=== PATIENT | male | born 1940 | race Caucasian/White ===

== ENCOUNTER 2017-07-09 11:11 | Emergency (ER) | payer MEDICARE, BC ==
[2017-07-09] MEDS ORDERED: Albuterol/Ipratropium 3.0-0.5 MG/3 ML Neb Soln NEB ONE (11:44)
[2017-07-09] MEDS ORDERED: Sodium Chloride 0.9% 2.5 ML Syringe FLUSH PRN (11:44)
[2017-07-09] MEDS ORDERED: Sodium Chloride 0.9% 10 ML Syringe FLUSH PRN (11:44)
--- NOTE | 2017-07-09 11:44 | EDM.PDOC ---
ED HPI GENERAL MEDICAL PROBLEM - General Chief Complaint: Respiratory Problem Stated Complaint: COUGHING Time Seen by Provider: 07/09/17 11:41 Source of Information: Reports: Patient History Limitations: Reports: No Limitations - History of Present Illness INITIAL COMMENTS - FREE TEXT/NARRATIVE: HISTORY AND PHYSICAL: []77-year-old gentleman presenting with dyspnea and cough History of Present Illness: []This patient has history of emphysema Was coughing all night yesterday and now has right-sided ear pain His primary care provider is Dr. Gio Toure On presentation O2 saturation 88-89% on room air 2 L nasal cannula and O2 saturation now is at 94%. Notable his oxygen saturation drops he has any activity He is productive cough that had white & green sputum Review of Systems: As per history of present illness and below otherwise all systems reviewed and negative. Past medical history: As per history of present illness and as reviewed below otherwise noncontributory. Surgical history: As per history of present illness and as reviewed below otherwise noncontributory. Social history: No reported history of drug or alcohol abuse. Family history: As per history of present illness and as reviewed below otherwise noncontributory. Physical exam: Alert gentleman answering questions appropriately in 3 or 4 words. Family accompanies him. HEENT: Atraumatic, normocehpalic, pupils reactive, negative for conjunctival pallor or scleral icterus, mucous membranes moist, throat clear, neck supple, nontender, trachea midline. Lungs: Rhonchi auscultation, breath sounds equal bilaterally, chest non tender. Heart: S1S2, regular, negative for clicks, rubs, or JVD. Abdomen: Soft, nondistended, nontender. Negative for masses or hepatossplenmegaly. Negative for costovertebral tenderness. Pelvis: Stable nontender. Genitourinary: Deferred. Rectal: Deferred Extremities: Atraumatic, negative for cords or calf pain. Neurovascular unremarkable. Neuro: Awake, alert, oriented. Cranial nerves II through XII unremarkable. Cerebellum unremarkable. Motor and sensory unremarkable throughout. Exam nonfocal. X-ray does not show any signs of a pneumonia Diagnostics: []CBC CMP amylase lipase troponin EKG chest x-ray 2 Therapeutics: []O2 2 L Impression: []COPD exacerbation Right otitis media Plan: []Discharged to home Nebulizer machine to utilize up to 4 times daily as needed for shortness of breath Antibiotic therapy of Zithromax daily Follow-up with your primary care provider next week Definitive disposition and diagnosis as appropriate pending reevaluation and review of above. Onset: Gradual Duration: Day(s): (4) Location: Reports: Chest Quality: Reports: Ache Severity: Moderate Improves with: Reports: None Worsens with: Reports: None - Related Data Allergies Allergy/AdvReac Type Severity Reaction Status Date / Time No Known Allergies Allergy Verified 07/09/17 11:25 Home Meds: Home Meds Albuterol Sulfate [Albuterol Sulfate HFA] 1 puff INH ASDIRECTED PRN 02/24/14 [ History] Celecoxib [CeleBREX] 200 mg PO DAILY 02/24/14 [History] Fluticasone/Salmeterol [Advair 250-50] 1 puff INH BID 02/24/14 [History] Omeprazole [Prilosec] 20 mg PO DAILY 02/24/14 [History] Psyllium Seed/Aspartame [Metamucil Powder] 1 tbsp PO BID 02/25/14 [History] Levofloxacin [Levaquin] 750 mg PO DAILY #6 tab 02/26/14 [Rx] predniSONE 20 mg PO BRK #12 tab 02/26/14 [Rx] Albuterol/Ipratropium [DuoNeb 3.0-0.5 MG/3 ML] 3 ml .XX Q8HR PRN #1 box [Rx] Azithromycin [Zithromax] 250 mg PO DAILY #6 tab 07/09/17 [Rx] Past Medical History Respiratory History: Reports: COPD Other Respiratory History: emphysema - Past Surgical History Male Surgical History: Reports: Prostatectomy Social & Family History - Family History Family Medical History: Noncontributory - Tobacco Use Smoking Status *Q: Current Some Day Smoker Years of Tobacco use: 65 Packs/Tins Daily: 0.1 - Caffeine Use Caffeine Use: Reports: Coffee - Recreational Drug Use Recreational Drug Use: No ED ROS GENERAL - Review of Systems Review Of Systems: ROS reveals no pertinent complaints other than HPI. ED EXAM, GENERAL - Physical Exam Exam: See Below (See dictation) Course - Vital Signs Last Recorded V/S: Last Vital Signs Temp 36.4 C 07/09/17 13:21 Pulse 88 05/19/18 13:21 Resp 16 07/09/17 13:21 BP 132/62 07/09/17 13:21 Pulse Ox 94 L 07/09/17 13:21 - Orders/Labs/Meds Orders: Active Orders 24 hr Category Date Time Status EKG Documentation Completion [RC] STAT Care 07/09/17 11:44 Active RT Aerosol Therapy [RC] ASDIRECTED Care 07/09/17 11:44 Active Chest 2V [CR] Stat Exams 07/09/17 11:45 Taken Sodium Chloride 0.9% [Saline Flush] Med 07/09/17 11:44 Active 10 ml FLUSH ASDIRECTED PRN Sodium Chloride 0.9% [Saline Flush] Med 07/09/17 11:44 Active 2.5 ml FLUSH ASDIRECTED PRN Saline Lock Insert [OM.PC] Stat Oth 07/09/17 11:44 Ordered Medication Orders Sodium Chloride (Saline Flush) 10 ml FLUSH ASDIRECTED PRN PRN Reason: Keep Vein Open Sodium Chloride (Saline Flush) 2.5 ml FLUSH ASDIRECTED PRN PRN Reason: Keep Vein Open Labs: Laboratory Tests 07/09/17 07/09/17 Range/Units 11:46 11:46 WBC 13.08 H (4.0-11.0) K/uL RBC 4.95 (4.50-5.90) M/uL Hgb 15.3 (13.0-17.0) g/dL Hct 44.9 (38.0-50.0) % MCV 90.7 (80.0-98.0) fL MCH 30.9 (27.0-32.0) pg MCHC 34.1 (31.0-37.0) g/dL RDW Std Deviation 43.9 (28.0-62.0) fl RDW Coeff of Yonis 13 (11.0-15.0) % Plt Count 148 L (150-400) K/uL MPV 11.80 (7.40-12.00) fL Neut % (Auto) 77.8 (48.0-80.0) % Lymph % (Auto) 6.3 L (16.0-40.0) % [place] % (Auto) 14.9 (0.0-15.0) % Eos % (Auto) 0.8 (0.0-7.0) % Baso % (Auto) 0.2 (0.0-1.5) % Neut # (Auto) 10.2 H (1.4-5.7) K/uL Lymph # (Auto) 0.8 (0.6-2.4) K/uL [place] # (Auto) 2.0 H (0.0-0.8) K/uL Eos # (Auto) 0.1 (0.0-0.7) K/uL Baso # (Auto) 0.0 (0.0-0.1) K/uL Nucleated RBC % 0.0 /100WBC Nucleated RBCs # 0 K/uL Sodium 137 (136-148) mmol/L Potassium 4.1 (3.5-5.1) mmol/L Chloride 103 (98-107) mmol/L Carbon Dioxide 24.5 (21.0-32.0) mmol/L BUN 18 (7.0-18.0) mg/dL Creatinine 1.3 (0.8-1.3) mg/dL Est Cr Clr Drug Dosing 48.35 mL/min Estimated GFR (MDRD) 53.4 ml/min Glucose 108 H (74-106) mg/dL Calcium 9.0 (8.5-10.1) mg/dL Total Bilirubin 0.8 (0.2-1.0) mg/dL AST 17 (15-37) IU/L ALT 19 (14-63) IU/L Alkaline Phosphatase 69 (46-116) U/L Troponin I < 0.050 (0.000-0.056) ng/mL Total Protein 6.4 (6.4-8.2) g/dL Albumin 3.4 (3.4-5.0) g/dL Globulin 3.0 (2.0-3.5) g/dL Albumin/Globulin Ratio 1.1 L (1.3-2.8) Meds: Medications Generic Name Dose Route Start Last Admin Trade Name Freq PRN Reason Stop Dose Admin Sodium Chloride 10 ml 07/09/17 11:44 Saline Flush FLUSH ASDIRECTED PRN Keep Vein Open Sodium Chloride 2.5 ml 07/09/17 11:44 Saline Flush FLUSH ASDIRECTED PRN Keep Vein Open Discontinued Medications Generic Name Dose Route Start Last Admin Trade Name Freq PRN Reason Stop Dose Admin Albuterol/Ipratropium 3 ml 07/09/17 11:44 07/09/17 11:58 Duoneb 3.0-0.5 Mg/3 Ml NEB 07/09/17 11:45 3 ml ONETIME ONE Administration Methylprednisolone Sodium Succinate 125 mg 07/09/17 12:16 07/09/17 12:38 Solu-Medrol IVPUSH 07/09/17 12:17 125 mg ONETIME ONE Administration Departure - Departure Time of Disposition: 14:37 Disposition: Home, Self-Care 01 Condition: Good Clinical Impression: COPD, Moderate chronic obstructive pulmonary disease - Discharge Information Prescriptions: Albuterol/Ipratropium [DuoNeb 3.0-0.5 MG/3 ML] 3 ml .XX Q8HR PRN #1 box PRN Reason: Shortness Of Breath Azithromycin [Zithromax] 250 mg PO DAILY #6 tab Instructions: Chronic Obstructive Pulmonary Disease Exacerbation, [id number] , How to Use a Nebulizer, Adult Referrals: PCP,None [Primary Care Provider] - Forms: ED Department Discharge Additional Instructions: The following information is given to patients seen in the emergency department who are being discharged to home. This information is to outline your options for follow-up care. We provide all patients seen in our emergency department with a follow-up referral. The need for follow-up, as well as the timing and circumstances, are variable depending upon the specifics of your emergency department visit. If you don't have a primary care physician on staff, we will provide you with a referral. We always advise you to contact your personal physician following an emergency department visit to inform them of the circumstance of the visit and for follow-up with them and/or the need for any referrals to a consulting specialist. The emergency department will also refer you to a specialist when appropriate. This referral assures that you have the opportunity for followup care with a specialist. All of these measure are taken in an effort to provide you with optimal care, which includes your followup. Under all circumstances we always encourage you to contact your private physician who remains a resource for coordinating your care. When calling for followup care, please make the office aware that this follow-up is from your recent emergency room visit. If for any reason you are refused follow-up, please contact the [facility] emergency department at and asked to speak to the emergency department charge nurse. You had a flareup of your emphysema/COPD Antibiotics have been ordered through your pharmacy A nebulizer machine has been ordered for you Medication to put in the nebulizer machine has been ordered Worsening of your condition return immediately for reevaluation Follow up with your primary care provider next week for reevaluation Return to the emergency room as discussed and - My Orders Last 24 Hours: My Active Orders 07/09/17 11:44 EKG Documentation Completion [RC] STAT RT Aerosol Therapy [RC] ASDIRECTED Sodium Chloride 0.9% [Saline Flush] 10 ml FLUSH ASDIRECTED PRN Sodium Chloride 0.9% [Saline Flush] 2.5 ml FLUSH ASDIRECTED PRN Saline Lock Insert [OM.PC] Stat 07/09/17 11:45 Chest 2V [CR] Stat - Assessment/Plan Last 24 Hours: My Active Orders 07/09/17 11:44 EKG Documentation Completion [RC] STAT RT Aerosol Therapy [RC] ASDIRECTED Sodium Chloride 0.9% [Saline Flush] 10 ml FLUSH ASDIRECTED PRN Sodium Chloride 0.9% [Saline Flush] 2.5 ml FLUSH ASDIRECTED PRN Saline Lock Insert [OM.PC] Stat 07/09/17 11:45 Chest 2V [CR] Stat
[2017-07-09] MEDS ORDERED: methylPREDNISolone Sodium Succinate 125 MG/2 ML SDV IVPUSH ONE (12:16)
[2017-07-09 12:22] LABS: CHLORIDE,CL 103 mmol/L (98-107); SODIUM,NA 137 mmol/L (136-148)
[2017-07-09 13:25] VITALS: BP 132/62
--- NOTE | 2017-07-11 10:48 | CR ---
EXAM DATE: 07/09/17 PATIENT'S AGE: 77 Patient: [facility] Facility: [place], [place] Site . Site : [id number] Study: XRay Chest [id number] 1:36:56 PM Ordering Physician: Doctor Noonan Final Report: INDICATION: Pain or shortness of breath. TECHNIQUE: Two views. IMPRESSION: Hyperinflated lungs. Scarring in both bases. Flattened hemidiaphragms. Mildly prominent central pulmonary artery caliber. Peripheral pulmonary vascularity normal. No definite pneumonia. No nodule. IMPRESSION: Emphysema. Possible mild pulmonary hypertension changes. Dictated by Adam Wright MD @ Jul 09 2017 1:49PM (Electronic Signature) Report Signed by Proxy. BONNIE
== END 2017-07-09 15:06 | disposition home or self-care (01) ==
LOC: MW.ED 11:11
DX: J44.1 Chronic obstructive pulmonary disease with (acute) exacerbation (principal); H66.91 Otitis media, unspecified, right ear; Z79.899 Other long term (current) drug therapy; F17.210 Nicotine dependence, cigarettes, uncomplicated
CPT/HCPCS: 36415; 71046; 80053; 84484; 85025; 93005; 94640; 96374; 99285; J2930; 99283

== ENCOUNTER 2020-06-05 17:03 | Inpatient (IN) | payer BC, MEDICARE ==
[2020-06-05] MEDS ORDERED: methylPREDNISolone Sodium Succinate 125 MG/2 ML SDV IVPUSH ONE (17:06)
[2020-06-05] MEDS ORDERED: Sodium Chloride 0.9% 2.5 ML Syringe FLUSH PRN (17:06)
[2020-06-05] MEDS ORDERED: Sodium Chloride 0.9% 10 ML Syringe FLUSH PRN (17:06)
[2020-06-05] MEDS ORDERED: Albuterol/Ipratropium 3.0-0.5 MG/3 ML Neb Soln NEB ONE ×3 (17:06→17:07)
--- NOTE | 2020-06-05 17:32 | PCM.EKG ---
#1 Interpretation EKG Date: 06/05/20 Time: 17:18 Rhythm: NSR Rate (Beats/Min): 83 ST-T: Normal
[2020-06-05] MEDS ORDERED: Sodium Chloride 0.9% 1,000 ML IV ONE (17:43)
--- NOTE | 2020-06-05 17:59 | EDM.PDOC ---
ED HPI GENERAL MEDICAL PROBLEM - General Chief Complaint: Respiratory Problem Stated Complaint: EMS Time Seen by Provider: 06/05/20 17:05 Source of Information: Reports: Patient, EMS, Family History Limitations: Reports: Altered Mental Status - History of Present Illness INITIAL COMMENTS - FREE TEXT/NARRATIVE: HISTORY AND PHYSICAL: History of present illness: Patient is an 80-year-old male who presents emergency room today via EMS with concern of hypoxia and altered mental status. Patient lives at home according to EMS and states that patient's daughter comes to check on him daily. Patient's daughter has arrived to the emergency room. According to patient's daughter, she states that she checks on him daily and bring some food and grocery shops for him. She states that he lives at home alone she states he has a history of severe COPD and is felt to be on 4 L nasal cannula at baseline at home at all times and states that he is not good about wearing it. Daughter states that she went to his house last night and noticed that he was little more confused. Daughter states when she went to check on him again today, he had completely urinated all over himself, was trying to crawl out the window and did not know where he was at, and he had not been using his oxygen all day. She states that she called EMS as soon as she arrived to his house. She states that she noticed he had not eaten any of the food that she made for him for the day. Upon arrival to the ED, patient is alert to person, place, but is confused about time and he has no complaints. Daughter states that was confused a few months ago and was instructed by Dr. Toure to start considering [place] but states that he improved so has been living at home. States that 1 week ago he did fall and injured his left elbow and did hit his head at that time. Patient/daughter denies fever, chills, chest pain. Denies headache, neck stiff ness, change in vision, syncope, or near syncope. Denies nausea, vomiting, abdominal pain, diarrhea, constipation, or dysuria. Has not noted any blood in urine or stool. Review of systems: As per history of present illness and below otherwise all systems reviewed and negative. Past medical history: As per history of present illness and as reviewed below otherwise noncontributory. Surgical history: As per history of present illness and as reviewed below otherwise noncontributory. Social history: See social history for further information Family history: As per history of present illness and as reviewed below otherwise noncontributory. Physical exam: General: Patient is alert, oriented, and in no acute distress. Patient laying on exam table; cachectic and chronically ill appearing. Tachypneic 25, O2 on non rebreather 100% otherwise vitally stable and reviewed by me. HEENT: Atraumatic, normocephalic, pupils equal and reactive bilaterally, negative for conjunctival pallor or scleral icterus, mucous membranes dry, TMs normal bilaterally, throat clear, neck supple, nontender, trachea midline. No drooling or trismus noted. No meningeal signs. No hot potato voice noted. Lungs: Barrel chest noted. Diminished lung sounds bilaterally with decreased air flow breath sounds equal bilaterally but diminished, chest nontender. Heart: S1S2, regular rate and rhythm without overt murmur Abdomen: Large umbilical hernia noted that reducible and non tender. Otherwise, soft, nondistended, nontender. Negative for masses or hepatosplenomegaly. Negative for costovertebral tenderness. Pelvis: Stable nontender. Genitourinary: Biotech Production Specialist at bedside, J Carlos Berkowitz RN. Patient incontinent of urine. Rectal: Deferred. Skin: Various multiple areas of older staged ecchymosis noted to skin. Intact, warm, dry. No lesions or rashes noted. Extremities: Ecchymosis noted to the left elbow with moderate edema, radial pulse intact of the LUE w cap refill < 2 seconds. Otherwise, atraumatic, negative for cords or calf pain. Neurovascular unremarkable. Neuro: Awake, alert, oriented. Cranial nerves II through XII unremarkable. Cerebellum unremarkable. Motor and sensory unremarkable throughout. Exam nonfocal. Notes: Dr. Lagos verbally involved in patient care and disposition. Upon arrival to the ED, patient is alert to person and place but not time and appears confused. He is unable to answer questions appropriately but is protecting his airway. GCS 13. O2 is 99% on 5L Oxymask and tachypneic 25. Patient's Daughter, who is at bedside, has medical POA paperwork that we have received a copy of legal paperwork. After extensive and thorough conversation o f possible respiratory deterioration with daughter, as patient is unable to make medical decisions at this time due to altered mental status, daughter Barbara decides for patient to be DNR/DNI. Barbara states that she would like patient to receive a full diagnostics to his underlying cause for today. Will obtain cardiac evaluation, altered mental status evaluation, and Ang CT r/o PE for worsening hypoxia/altered mental status, Head CT and an XR of patients elbow/pelvis for suspected fall/injury. Despite oxymask and improvement of hypoxia, patient RR increasing to 30-35. After thorough discussion with daughter, Barbara, will transition to BIPAP. See Dr. Arroyo's dictation for specific EKG interpretation but no STEMI or acute changes. Normal sinus rhythm. CBC mild derangements which unremarkable. CMP indicates CO2 elevated 36.3 and mild elevation of potassium at 5.2. VBG shows pH 7.33. Troponin is elevated 0.093. COVID/Flu negative. ABG on Bipap shows worsening ph of acidosis 7.267 with elevation CO2 at 68. Repeat troponin has increased to 0.194. Patient is unable to tolerate PO intake for ASA. Ang CT shows no pulmonary embolism or pneumonia. Emphysema. Two left lower lobe pulmonary nodules. Head CT shows no acute intracranial findings. Elbow XR shows acute nondisplaced fracture of the radial head. Avulsion fracture of the olecranon process with prominent overlying soft tissue swelling. Patient placed in a posterior long sugar tong splint of the LUE placed by nursing staff. Discussed all findings today with patient and daughter at bedside. Discussed increasing troponin value and concern for acute coronary syndrome with recommendation for transfer to [facility] for cardiology consultation. However, daughter would not like to put patient through this and would like to admit to our hospital, understanding that we do not have cardiology availability. I called and spoke to the hospitalist mining consultant, Dr. Laguerre, and thoroughly discussed patients case. Will admit to inpatient on telemetry. Diagnostics: EKG, CBC, CMP, UA, Lactate, Blood cultures x 2, VBG, Trop, Head CT, CXR, Left elbow XR, Pelvic XR Therapeutics: NS, Duoneb x 3, solumedrol, Oxymask, Bipap, Lovenox, Azithromycin, Rocephin, Posterior long/sugar tong splint to LUE Impression: Acute respiratory failure with hypercapnia and hypoxia Elevated troponin COPD exacerbation, severe Altered mental status Radial head fracture, nondisplaced, closed Olecranon avulsion fracture, closed, left Plan: Admit to inpatient to Dr. Laguerre on telemetry Critical care time is exclusive of billable procedures and the time to perform these procedures. Critical care time was used to prevent vital system organ failure and deterioration. Critical care time includes bedside management and high-complexity decision making requiring my highest level of mental preparedness and attention. This includes reviewing the patient's chart and prior medical records, ordering and reviewing interpreting laboratory studies and imaging results, interpretation of vital signs and EKG, pulse oximetry, and discussion with the admitting team along with EMS and nursing staff. Patient presented with multiple critical lab values that required immediate intervention, acute respiratory failure requiring Bipap and immediate transfer to the hospital for additional close monitoring and continuation of treatment CC Time: 60 minutes Definitive disposition and diagnosis as appropriate pending reevaluation and review of above. - Related Data Allergies Allergy/AdvReac Type Severity Reaction Status Date / Time No Known Allergies Allergy Verified 06/05/20 17:18 Home Meds: Home Meds . [Unable to Verify Home Med List] 06/05/20 [History] Past Medical History Respiratory History: Reports: COPD Other Respiratory History: emphysema - Infectious Disease History Infectious Disease History: Reports: None - Past Surgical History Male Surgical History: Reports: Prostatectomy Social & Family History - Family History Family Medical History: No Pertinent Family History - Tobacco Use Tobacco Use Status *Q: Current Status Unknown - Caffeine Use Caffeine Use: Reports: Coffee - Recreational Drug Use Recreational Drug Use: No ED ROS GENERAL - Review of Systems Review Of Systems: Comprehensive ROS is negative, except as noted in HPI. ED EXAM, GENERAL - Physical Exam Exam: See Below (see dictation) Course - Vital Signs Last Recorded V/S: Last Vital Signs Temp 98 F 06/07/20 08:31 Pulse 72 06/07/20 08:31 Resp 22 H 06/07/20 08:31 BP 148/68 H 06/07/20 08:31 Pulse Ox 82 L 06/07/20 08:31 - Orders/Labs/Meds Labs: Laboratory Tests 06/05/20 06/05/20 06/05/20 Range/Units 17:15 17:15 17:53 WBC 8.00 (4.0-11.0) K/uL RBC 4.18 L (4.50-5.90) M/uL Hgb 12.9 L (13.0-17.0) g/dL Hct 43.0 (38.0-50.0) % MCV 102.9 H (80.0-98.0) fL MCH 30.9 (27.0-32.0) pg MCHC 30.0 L (31.0-37.0) g/dL RDW Std Deviation 54.2 (28.0-62.0) fl RDW Coeff of Yonis 15 (11.0-15.0) % Plt Count 121 L (150-400) K/uL MPV 12.30 H (7.40-12.00) fL Neut % (Auto) 84.0 H (48.0-80.0) % Lymph % (Auto) 8.1 L (16.0-40.0) % [place] % (Auto) 7.3 (0.0-15.0) % Eos % (Auto) 0.3 (0.0-7.0) % Baso % (Auto) 0.3 (0.0-1.5) % Neut # (Auto) 6.7 H (1.4-5.7) K/uL Lymph # (Auto) 0.7 (0.6-2.4) K/uL [place] # (Auto) 0.6 (0.0-0.8) K/uL Eos # (Auto) 0.0 (0.0-0.7) K/uL Baso # (Auto) 0.0 (0.0-0.1) K/uL Nucleated RBC % 0.0 /100WBC Nucleated RBCs # 0 K/uL D-Dimer, Quantitative (0.0-0.50) mg/L FEU ABG pH (7.35-7.45) ABG pCO2 (35-45) mmHG ABG pO2 (75-100) mmHG ABG HCO3 (22-26) mEq/L ABG Total CO2 ABG Base Excess (-2.0-2.0) VBG pH 7.33 (7.31-7.41) VBG pCO2 64 H (35-45) mmHG VBG pO2 42 H (30-40) mmHG VBG HCO3 34 H (22-30) mEq/L VBG Total CO2 31 L (41-51) mmol/L VBG Base Excess 5.7 H (-3.0-3.0) Lactate 1.5 (0.20-2.00) mmol/L Sodium (136-148) mmol/L Potassium (3.5-5.1) mmol/L Chloride (98-107) mmol/L Carbon Dioxide (21.0-32.0) mmol/L BUN (7.0-18.0) mg/dL Creatinine (0.8-1.3) mg/dL Est Cr Clr Drug Dosing mL/min Estimated GFR (MDRD) ml/min Glucose (74-106) mg/dL Calcium (8.5-10.1) mg/dL Total Bilirubin (0.2-1.0) mg/dL AST (15-37) IU/L ALT (14-63) IU/L Alkaline Phosphatase (46-116) U/L Troponin I (0.000-0.056) ng/mL B-Natriuretic Peptide (<100) PG/ML Total Protein (6.4-8.2) g/dL Albumin (3.4-5.0) g/dL Globulin (2.6-4.0) g/dL Albumin/Globulin Ratio (0.9-1.6) Lipase (73-393) U/L Influenza Type A RNA (NEGATIVE) Influenza Type B RNA (NEGATIVE) SARS-CoV-2 RNA (JULIETA) (NEGATIVE) 06/05/20 06/05/20 06/05/20 Range/Units 17:53 17:53 17:53 WBC (4.0-11.0) K/uL RBC (4.50-5.90) M/uL Hgb (13.0-17.0) g/dL Hct (38.0-50.0) % MCV (80.0-98.0) fL MCH (27.0-32.0) pg MCHC (31.0-37.0) g/dL RDW Std Deviation (28.0-62.0) fl RDW Coeff of Yonis (11.0-15.0) % Plt Count (150-400) K/uL MPV (7.40-12.00) fL Neut % (Auto) (48.0-80.0) % Lymph % (Auto) (16.0-40.0) % [place] % (Auto) (0.0-15.0) % Eos % (Auto) (0.0-7.0) % Baso % (Auto) (0.0-1.5) % Neut # (Auto) (1.4-5.7) K/uL Lymph # (Auto) (0.6-2.4) K/uL [place] # (Auto) (0.0-0.8) K/uL Eos # (Auto) (0.0-0.7) K/uL Baso # (Auto) (0.0-0.1) K/uL Nucleated RBC % /100WBC Nucleated RBCs # K/uL D-Dimer, Quantitative 0.49 (0.0-0.50) mg/L FEU ABG pH (7.35-7.45) ABG pCO2 (35-45) mmHG ABG pO2 (75-100) mmHG ABG HCO3 (22-26) mEq/L ABG Total CO2 ABG Base Excess (-2.0-2.0) VBG pH (7.31-7.41) VBG pCO2 (35-45) mmHG VBG pO2 (30-40) mmHG VBG HCO3 (22-30) mEq/L VBG Total CO2 (41-51) mmol/L VBG Base Excess (-3.0-3.0) Lactate (0.20-2.00) mmol/L Sodium 141 (136-148) mmol/L Potassium 5.2 H (3.5-5.1) mmol/L Chloride 101 (98-107) mmol/L Carbon Dioxide 36.3 H (21.0-32.0) mmol/L BUN 41 H (7.0-18.0) mg/dL Creatinine 1.3 (0.8-1.3) mg/dL Est Cr Clr Drug Dosing 34.31 mL/min Estimated GFR (MDRD) 53.0 ml/min Glucose 102 (74-106) mg/dL Calcium 9.2 (8.5-10.1) mg/dL Total Bilirubin 0.7 (0.2-1.0) mg/dL AST 23 (15-37) IU/L ALT 22 (14-63) IU/L Alkaline Phosphatase 79 (46-116) U/L Troponin I 0.093 H* (0.000-0.056) ng/mL B-Natriuretic Peptide 51 (<100) PG/ML Total Protein 6.6 (6.4-8.2) g/dL Albumin 3.6 (3.4-5.0) g/dL Globulin 3.0 (2.6-4.0) g/dL Albumin/Globulin Ratio 1.2 (0.9-1.6) Lipase 117 (73-393) U/L Influenza Type A RNA (NEGATIVE) Influenza Type B RNA (NEGATIVE) SARS-CoV-2 RNA (JULIETA) (NEGATIVE) 06/05/20 06/05/20 06/05/20 Range/Units 18:04 19:50 19:59 WBC (4.0-11.0) K/uL RBC (4.50-5.90) M/uL Hgb (13.0-17.0) g/dL Hct (38.0-50.0) % MCV (80.0-98.0) fL MCH (27.0-32.0) pg MCHC (31.0-37.0) g/dL RDW Std Deviation (28.0-62.0) fl RDW Coeff of Yonis (11.0-15.0) % Plt Count (150-400) K/uL MPV (7.40-12.00) fL Neut % (Auto) (48.0-80.0) % Lymph % (Auto) (16.0-40.0) % [place] % (Auto) (0.0-15.0) % Eos % (Auto) (0.0-7.0) % Baso % (Auto) (0.0-1.5) % Neut # (Auto) (1.4-5.7) K/uL Lymph # (Auto) (0.6-2.4) K/uL [place] # (Auto) (0.0-0.8) K/uL Eos # (Auto) (0.0-0.7) K/uL Baso # (Auto) (0.0-0.1) K/uL Nucleated RBC % /100WBC Nucleated RBCs # K/uL D-Dimer, Quantitative (0.0-0.50) mg/L FEU ABG pH 7.267 L (7.35-7.45) ABG pCO2 68 H (35-45) mmHG ABG pO2 75 (75-100) mmHG ABG HCO3 31 H (22-26) mEq/L ABG Total CO2 28.9 ABG Base Excess 2.3 H (-2.0-2.0) VBG pH (7.31-7.41) VBG pCO2 (35-45) mmHG VBG pO2 (30-40) mmHG VBG HCO3 (22-30) mEq/L VBG Total CO2 (41-51) mmol/L VBG Base Excess (-3.0-3.0) Lactate (0.20-2.00) mmol/L Sodium (136-148) mmol/L Potassium (3.5-5.1) mmol/L Chloride (98-107) mmol/L Carbon Dioxide (21.0-32.0) mmol/L BUN (7.0-18.0) mg/dL Creatinine (0.8-1.3) mg/dL Est Cr Clr Drug Dosing mL/min Estimated GFR (MDRD) ml/min Glucose (74-106) mg/dL Calcium (8.5-10.1) mg/dL Total Bilirubin (0.2-1.0) mg/dL AST (15-37) IU/L ALT (14-63) IU/L Alkaline Phosphatase (46-116) U/L Troponin I 0.194 H* (0.000-0.056) ng/mL B-Natriuretic Peptide (<100) PG/ML Total Protein (6.4-8.2) g/dL Albumin (3.4-5.0) g/dL Globulin (2.6-4.0) g/dL Albumin/Globulin Ratio (0.9-1.6) Lipase (73-393) U/L Influenza Type A RNA NEGATIVE (NEGATIVE) Influenza Type B RNA NEGATIVE (NEGATIVE) SARS-CoV-2 RNA (JULIETA) NEGATIVE (NEGATIVE) Meds: Medications Discontinued Medications Generic Name Dose Route Start Last Admin Trade Name Freq PRN Reason Stop Dose Admin Albuterol/Ipratropium 3 ml 06/05/20 17:06 06/05/20 17:16 Albuterol/Ipratropium 3.0-0.5 Mg/3 Ml Neb Soln NEB 06/05/20 17:07 3 ml ONETIME ONE Administration Albuterol/Ipratropium 3 ml 06/05/20 17:07 06/05/20 17:16 Albuterol/Ipratropium 3.0-0.5 Mg/3 Ml Neb Soln NEB 06/05/20 17:08 3 ml ONETIME ONE Administration Albuterol/Ipratropium 3 ml 06/05/20 17:07 06/05/20 17:16 Albuterol/Ipratropium 3.0-0.5 Mg/3 Ml Neb Soln NEB 06/05/20 17:08 3 ml ONETIME ONE Administration Albuterol/Ipratropium 3 ml 06/06/20 02:00 06/06/20 06:02 Albuterol/Ipratropium 3.0-0.5 Mg/3 Ml Neb Soln NEB 3 ml Q4HRRT MONSERRAT Administration Albuterol/Ipratropium 3 ml 06/06/20 09:36 06/06/20 22:25 Albuterol/Ipratropium 3.0-0.5 Mg/3 Ml Neb Soln NEB 3 ml Q4HRRT PRN Administration Shortness of Breath Aspirin 324 mg 06/05/20 18:43 06/05/20 19:49 Aspirin 81 Mg Tab.Chew PO 06/05/20 18:44 Not Given ONETIME ONE Enoxaparin Sodium 54 mg 06/05/20 21:07 06/05/20 21:27 Enoxaparin 60 Mg/0.6 Ml Syringe SUBCUT 06/05/20 21:08 54 mg ONETIME ONE Administration Haloperidol Lactate 5 mg 06/05/20 23:24 06/05/20 23:47 Haloperidol Lactate 5 Mg/Ml Sdv IM 06/05/20 23:25 5 mg ONETIME ONE Administration Haloperidol Lactate 5 mg 06/06/20 01:15 Haloperidol Lactate 5 Mg/Ml Sdv IM Q8H PRN Agitation Heparin Sodium (Porcine) 5,000 units 06/05/20 22:30 06/06/20 06:34 Heparin Sodium 5,000 Units/Ml Vial SUBCUT 5,000 units Q8H MONSERRAT Administration Sodium Chloride 1,000 mls @ 500 mls/hr 06/05/20 17:43 06/05/20 17:58 Normal Saline IV 06/05/20 19:42 500 mls/hr STAT ONE Administration Ceftriaxone Sodium/Dextrose 1 50 mls @ 100 mls/hr 06/05/20 19:58 06/05/20 20:09 gm/ Premix IV 06/05/20 20:27 100 mls/hr ONETIME ONE Administration Azithromycin 500 mg/ Sodium 250 mls @ 250 mls/hr 06/05/20 20:00 06/05/20 20:55 Chloride IV 250 mls/hr ONETIME MONSERRAT Administration Lactated Ringer's 1,000 mls @ 999 mls/hr 06/05/20 22:30 06/05/20 23:51 Ringers, Lactated IV 06/05/20 23:30 999 mls/hr BOLUS ONE Administration Lactated Ringer's 1,000 mls @ 125 mls/hr 06/05/20 22:30 06/06/20 09:33 Ringers, Lactated IV 125 mls/hr ASDIRECTED MONSERRAT Administration Pantoprazole Sodium 40 mg/ 10 mls @ 300 mls/hr 06/05/20 22:45 06/06/20 09:33 Sodium Chloride IV 300 mls/hr DAILY MONSERRAT Administration Azithromycin 500 mg/ Sodium 250 mls @ 250 mls/hr 06/06/20 09:45 Chloride IV Q24H MONSERRAT Azithromycin 500 mg/ Sodium 250 mls @ 250 mls/hr 06/06/20 21:00 Chloride IV Q24H MONSERRAT Iopamidol 100 ml 06/05/20 18:53 06/05/20 19:34 Iopamidol 755 Mg/Ml 100 Ml Bottle IVPUSH 06/05/20 18:54 100 ml ONETIME STA Administration Lorazepam 0.5 mg 06/05/20 23:24 06/05/20 23:38 Lorazepam 2 Mg/Ml Sdv IVPUSH 06/05/20 23:25 0.5 mg ONETIME ONE Administration Lorazepam 1 mg 06/06/20 09:39 06/06/20 18:27 Lorazepam 2 Mg/Ml Sdv IVPUSH 1 mg Q4H PRN Administration agitation/anxiety Lorazepam 1 mg 06/06/20 21:17 06/06/20 22:18 Lorazepam Conc Solution 2 Mg/Ml 30 Ml Bottle PO 1 mg Q1H PRN Administration Agitation Lorazepam 2 mg 06/06/20 23:58 06/07/20 00:15 Lorazepam Conc Solution 2 Mg/Ml 30 Ml Bottle PO 06/06/20 23:59 2 mg ONETIME ONE Administration Lorazepam 1 mg 06/07/20 00:49 06/07/20 18:51 Lorazepam Conc Solution 2 Mg/Ml 30 Ml Bottle PO 1 mg Q30M PRN Administration Agitation Methylprednisolone Sodium Succinate 125 mg 06/05/20 17:06 06/05/20 17:58 Methylprednisolone Sodium Succinate 125 Mg/2 Ml Sdv IVPUSH 06/05/20 17:07 125 mg ONETIME ONE Administration Methylprednisolone Sodium Succinate 40 mg 06/06/20 02:00 06/06/20 09:33 Methylprednisolone Sodium Succinate 40 Mg/1 Ml Sdv IVPUSH 40 mg Q8H MONSERRAT Administration Morphine Sulfate 0.5 mg 06/05/20 22:30 Morphine 10 Mg/Ml Syringe IVPUSH 06/06/20 22:31 Q4H PRN Pain (severe 7-10) Morphine Sulfate 2 mg 06/06/20 09:38 06/06/20 18:27 Morphine 2 Mg/Ml Syringe IVPUSH 2 mg Q1H PRN Administration pain/agitation/SOB Morphine Sulfate 2 mg 06/06/20 21:25 06/07/20 00:23 Morphine 10 Mg/0.5 Ml Oral Syringe SL 2 mg Q1H PRN Administration Pain Morphine Sulfate 2 mg 06/07/20 00:50 06/07/20 18:51 Morphine 10 Mg/0.5 Ml Oral Syringe SL 2 mg Q30M PRN Administration Pain Ondansetron HCl 4 mg 06/05/20 22:30 Ondansetron 4 Mg/2 Ml Sdv IVPUSH Q4H PRN Nausea/Vomiting Sodium Chloride 2.5 ml 06/05/20 17:06 06/05/20 17:59 Sodium Chloride 0.9% 2.5 Ml Syringe FLUSH 2.5 ml ASDIRECTED PRN Administration Keep Vein Open Sodium Chloride 10 ml 06/05/20 17:06 06/05/20 17:59 Sodium Chloride 0.9% 10 Ml Syringe FLUSH 10 ml ASDIRECTED PRN Administration Keep Vein Open Departure - Departure Time of Disposition: 21:43 Disposition: Admitted As Inpatient 65 Clinical Impression: Elevated troponin, COPD exacerbation, Acute respiratory failure with hypoxia and hypercapnia Radial head fracture, closed Qualifiers: Encounter type: initial encounter Fracture alignment: nondisplaced Laterality: left Qualified Code(s): S52.125A - Nondisplaced fracture of head of left radius, initial encounter for closed fracture Olecranon fracture Qualifiers: Encounter type: initial encounter Fracture type: closed Laterality: left Qualified Code(s): S52.022A - Displaced fracture of olecranon process without intraarticular extension of left ulna, initial encounter for closed fracture Altered mental status Qualifiers: Altered mental status type: unspecified Qualified Code(s): R41.82 - Altered mental status, unspecified - Discharge Information Sepsis Event Note (ED) - Evaluation Sepsis Screening Result: No Definite Risk
[2020-06-05 18:27] LABS: CARBON DIOXIDE,CO2 36.3 mmol/L (21.0-32.0); POTASSIUM,K 5.2 mmol/L (3.5-5.1)
[2020-06-05] MEDS ORDERED: Aspirin 81 MG Tab.Chew PO ONE (18:43)
[2020-06-05 18:46] LABS: CORONAVIRUS COVID-19 NAA NEGATIVE (NEGATIVE); INFLUENZA A NAA NEGATIVE (NEGATIVE); INFLUENZA B NAA NEGATIVE (NEGATIVE)
[2020-06-05] MEDS ORDERED: Iopamidol 755 Mg/ML 100 ML Bottle IVPUSH STA (18:53)
--- NOTE | 2020-06-05 19:33 | CR ---
Indication: Fall. Technique: Left elbow 3 views. Comparison: None. Findings: Small avulsion fracture fragment of the olecranon process with prominent overlying soft tissue swelling. There is also an acute nondisplaced fracture of the radial head. Small elbow joint effusion. Impression: 1. Acute nondisplaced fracture of the radial head. 2. Avulsion fracture of the olecranon process with prominent overlying soft tissue swelling. Dictated by Ignacia De La Torre MD @ Jun 05 2020 7:29PM Signed by Dr. Ignacia De La Torre @ Jun 05 2020 7:32PM
--- NOTE | 2020-06-05 19:33 | CR ---
Indication: Fall Technique: Frontal view pelvis Comparison: CT abdomen pelvis May 28, 2013 Findings: Bones: Alignment is normal. No fractures or bone lesions. Joint spaces: Unremarkable. Soft tissues: There are surgical clips in the lower pelvis. Impression: No acute fracture or subluxation. Dictated by Yandy Mo MD @ Jun 05 2020 7:33PM Signed by Dr. Yandy Mo @ Jun 05 2020 7:33PM
--- NOTE | 2020-06-05 19:33 | CR ---
Indication: Shortness of breath Technique: Chest 1 view Comparison: June 02, 2018 Findings/Impression: Normal cardiomediastinal silhouette. Stable scarring at both lung bases. No new focal infiltrate. Normal pulmonary vasculature. No significant effusion. No pneumothorax. Osseous structures intact. Dictated by Yandy Mo MD @ Jun 05 2020 7:29PM Signed by Dr. Yandy Mo @ Jun 05 2020 7:31PM
[2020-06-05] MEDS ORDERED: cefTRIAXone 1 GM in Premix Bag 1 BAG IV ONE (19:58)
[2020-06-05] MEDS ORDERED: Azithromycin 500 MG in Sodium Chloride 0.9% 250 ML IV SCH (20:00)
--- NOTE | 2020-06-05 20:06 | CT ---
INDICATION: Confusion TECHNIQUE: Head CT without contrast. COMPARISON: None FINDINGS: CSF spaces: Within normal limits for age. Brain parenchyma: There are nonspecific low attenuation white matter changes consistent with chronic microvascular disease. No sign of mass, hemorrhage, or midline shift. Skull base and calvarium: Small bilateral mastoid effusions. The visualized paranasal sinuses demonstrate no acute or significant findings. The visualized orbits are grossly unremarkable. No skull fractures. There is intracranial atherosclerosis. IMPRESSION: 1. No acute intracranial finding. 2. Nonspecific white matter disease, typical of chronic microvascular disease. 3. Small bilateral mastoid effusions. Please note that all CT scans at this facility use dose modulation, iterative reconstruction, and/or weight-based dosing when appropriate to reduce radiation dose to as low as reasonably achievable. Dictated by Yandy Mo MD @ Jun 05 2020 8:06PM Signed by Dr. Yandy Mo @ Jun 05 2020 8:06PM
--- NOTE | 2020-06-05 20:23 | CT ---
INDICATION: Chest pain, shortness of breath TECHNIQUE: CT chest pulmonary PE protocol acquired with 65 cc Isovue 370 IV contrast. COMPARISON: September 20, 2018 FINDINGS: Cardiovascular structures: Normal vascular enhancement of the pulmonary arteries, no sign of pulmonary embolism. Heart size is normal. No sign of aneurysm in the thoracic aorta. Mediastinum and black: No mass or adenopathy. Lungs: Emphysema. Linear scarring in the left upper lobe. New 3.5 mm subpleural pulmonary nodule left lower lobe image 168 series 402. Stable 6 mm left lower lobe pulmonary nodule image 117 series 402. Pleura and pericardium: No effusions. Chest wall and axilla: No mass or adenopathy. Upper abdomen: Simple cysts on both kidneys. Bones: Increased kyphosis of the thoracic spine. IMPRESSION: No pulmonary embolism or pneumonia. Emphysema. Two left lower lobe pulmonary nodules. One is stable, the other is new compared to September 20, 2018. Recommend follow-up per Fleischner society guidelines. Please note that all CT scans at this facility use dose modulation, iterative reconstruction, and/or weight-based dosing when appropriate to reduce radiation dose to as low as reasonably achievable. Dictated by Yandy Mo MD @ Jun 05 2020 8:07PM Signed by Dr. Yandy Mo @ Jun 05 2020 8:23PM
[2020-06-05] MEDS ORDERED: Enoxaparin 60 MG/0.6 ML Syringe SUBCUT ONE (21:07)
[2020-06-05] MEDS ORDERED: Morphine 10 MG/ML Syringe IVPUSH PRN (22:30)
[2020-06-05] MEDS ORDERED: Lactated Ringers 1,000 ML IV ONE (22:30)
[2020-06-05] MEDS ORDERED: Ondansetron 4 MG/2 ML SDV IVPUSH PRN (22:30)
--- NOTE | 2020-06-05 22:42 | PCM.HP.2 ---
H&P History of Present Illness - General Date of Service: 06/05/20 Admit Problem/Dx: Admission Diagnosis/Problem Admission Diagnosis/Problem COPD, Severe chronic obstructive pulmonary disease History Limitations: Reports: Altered Mental Status - History of Present Illness Initial Comments - Free Text/Narative: Patient is an 80-year-old male with PMH of end stage COPD on 5 lts of oxygen who presents emergency room today via EMS with concern of hypoxia and altered mental status. Per family Patient lives at home and that patient's daughter comes to check on him daily. Per family patient uses 4-5 lts of oxygen but isnt very compliant with it. Per daughter patient was a little more confused last night but today, he had completely urinated all over himself, was trying to crawl out the window and did not know where he was at, and he had not been using his oxygen all day. Daughter states that his confusion has gotten worse last few weeks and they were considering [facility] for placement but patient didnt want to go. Daugther also states that 1 week ago he did fall and injured his left elbow and did hit his head at that time. Patient/daughter denies fever, chills, chest pain. Denies headache, neck stiff ness, change in vision, syncope, or near syncope. Denies nausea, vomiting, abdominal pain, diarrhea, constipation, or dysuria. Has not noted any blood in urine or stool. In the ER patient was to have Ph of 7.2, co2 of 68, he was started on BiPAP due to increased WOB. Troponins were elevated as well, trending up, EKG was showed no acute ischemic changes. Xray of left elbow shoed non displaces # of radial head and avulsion fracture of olecranon process. Patients daughter who is the POA states patient wanted to be DNR/DNI and transfer to tertiary facility was discussed which family refused stating they wouldn't want aggressive care. Patient is on BiPAP at bedside, asking for water, awake, alert but not oriented. Patient was admitted for further care. I had a lengthy discussion with daughter (POA) at bedside, she wants to try BiPAP overnight and possibly transition to comfort care in the morning. They dont want any sort of aggressive care but are ok with BiPAP as long as patient tolerated, if he doesn't tolerate it, will switch to oxygen and lean to comfort care, daughter in agreement - Related Data Allergies/Adverse Reactions: Allergies Allergy/AdvReac Type Severity Reaction Status Date / Time No Known Allergies Allergy Verified 06/05/20 17:18 Home Medications: Home Meds . [Unable to Verify Home Med List] 06/05/20 [History] Past Medical History Respiratory History: Reports: COPD Other Respiratory History: emphysema - Infectious Disease History Infectious Disease History: Reports: None - Past Surgical History Male Surgical History: Reports: Prostatectomy Social & Family History - Family History Family Medical History: No Pertinent Family History - Tobacco Use Tobacco Use Status *Q: Current Status Unknown - Caffeine Use Caffeine Use: Reports: Coffee - Recreational Drug Use Recreational Drug Use: No H&P Review of Systems - Review of Systems: Review Of Systems: Unable To Obtain Reason Not Obtained: AMS Exam - Exam Exam: See Below - Vital Signs Vital Signs: Last Vital Signs Temp 37.5 C 06/05/20 20:43 Pulse 99 06/05/20 20:43 Resp 24 H 06/05/20 20:43 BP 137/57 L 06/05/20 20:43 Pulse Ox 94 L 06/05/20 20:43 Weight: 54.431 kg - Exam Quality Assessment: Supplemental Oxygen General: Alert, Mild Distress. No: Oriented HEENT: Conjunctiva Clear Neck: Trachea Midline Lungs: Clear to Auscultation, Decreased Breath Sounds, Wheezing. No: Normal Respiratory Effort Cardiovascular: Regular Rate, Regular Rhythm, Normal S1, Normal S2 GI/Abdominal Exam: Normal Bowel Sounds, Soft, Non-Tender, No Abnormal Bruit Back Exam: Normal Inspection Extremities: Normal Inspection, Normal Range of Motion, Slow Capillary Refill - Patient Data Lab Results Last 24 hrs: Laboratory Results - last 24 hr 06/05/20 06/05/20 06/05/20 Range/Units 17:15 17:15 17:53 WBC 8.00 (4.0-11.0) K/uL RBC 4.18 L (4.50-5.90) M/uL Hgb 12.9 L (13.0-17.0) g/dL Hct 43.0 (38.0-50.0) % MCV 102.9 H (80.0-98.0) fL MCH 30.9 (27.0-32.0) pg MCHC 30.0 L (31.0-37.0) g/dL RDW Std Deviation 54.2 (28.0-62.0) fl RDW Coeff of Yonis 15 (11.0-15.0) % Plt Count 121 L (150-400) K/uL MPV 12.30 H (7.40-12.00) fL Neut % (Auto) 84.0 H (48.0-80.0) % Lymph % (Auto) 8.1 L (16.0-40.0) % [place] % (Auto) 7.3 (0.0-15.0) % Eos % (Auto) 0.3 (0.0-7.0) % Baso % (Auto) 0.3 (0.0-1.5) % Neut # (Auto) 6.7 H (1.4-5.7) K/uL Lymph # (Auto) 0.7 (0.6-2.4) K/uL [place] # (Auto) 0.6 (0.0-0.8) K/uL Eos # (Auto) 0.0 (0.0-0.7) K/uL Baso # (Auto) 0.0 (0.0-0.1) K/uL Nucleated RBC % 0.0 /100WBC Nucleated RBCs # 0 K/uL D-Dimer, Quantitative (0.0-0.50) mg/L FEU ABG pH (7.35-7.45) ABG pCO2 (35-45) mmHG ABG pO2 (75-100) mmHG ABG HCO3 (22-26) mEq/L ABG Total CO2 ABG Base Excess (-2.0-2.0) VBG pH 7.33 (7.31-7.41) VBG pCO2 64 H (35-45) mmHG VBG pO2 42 H (30-40) mmHG VBG HCO3 34 H (22-30) mEq/L VBG Total CO2 31 L (41-51) mmol/L VBG Base Excess 5.7 H (-3.0-3.0) Lactate 1.5 (0.20-2.00) mmol/L Sodium (136-148) mmol/L Potassium (3.5-5.1) mmol/L Chloride (98-107) mmol/L Carbon Dioxide (21.0-32.0) mmol/L BUN (7.0-18.0) mg/dL Creatinine (0.8-1.3) mg/dL Est Cr Clr Drug Dosing mL/min Estimated GFR (MDRD) ml/min Glucose (74-106) mg/dL Calcium (8.5-10.1) mg/dL Total Bilirubin (0.2-1.0) mg/dL AST (15-37) IU/L ALT (14-63) IU/L Alkaline Phosphatase (46-116) U/L Troponin I (0.000-0.056) ng/mL B-Natriuretic Peptide (<100) PG/ML Total Protein (6.4-8.2) g/dL Albumin (3.4-5.0) g/dL Globulin (2.6-4.0) g/dL Albumin/Globulin Ratio (0.9-1.6) Lipase (73-393) U/L Influenza Type A RNA (NEGATIVE) Influenza Type B RNA (NEGATIVE) SARS-CoV-2 RNA (JULIETA) (NEGATIVE) 06/05/20 06/05/20 06/05/20 Range/Units 17:53 17:53 17:53 WBC (4.0-11.0) K/uL RBC (4.50-5.90) M/uL Hgb (13.0-17.0) g/dL Hct (38.0-50.0) % MCV (80.0-98.0) fL MCH (27.0-32.0) pg MCHC (31.0-37.0) g/dL RDW Std Deviation (28.0-62.0) fl RDW Coeff of Yonis (11.0-15.0) % Plt Count (150-400) K/uL MPV (7.40-12.00) fL Neut % (Auto) (48.0-80.0) % Lymph % (Auto) (16.0-40.0) % [place] % (Auto) (0.0-15.0) % Eos % (Auto) (0.0-7.0) % Baso % (Auto) (0.0-1.5) % Neut # (Auto) (1.4-5.7) K/uL Lymph # (Auto) (0.6-2.4) K/uL [place] # (Auto) (0.0-0.8) K/uL Eos # (Auto) (0.0-0.7) K/uL Baso # (Auto) (0.0-0.1) K/uL Nucleated RBC % /100WBC Nucleated RBCs # K/uL D-Dimer, Quantitative 0.49 (0.0-0.50) mg/L FEU ABG pH (7.35-7.45) ABG pCO2 (35-45) mmHG ABG pO2 (75-100) mmHG ABG HCO3 (22-26) mEq/L ABG Total CO2 ABG Base Excess (-2.0-2.0) VBG pH (7.31-7.41) VBG pCO2 (35-45) mmHG VBG pO2 (30-40) mmHG VBG HCO3 (22-30) mEq/L VBG Total CO2 (41-51) mmol/L VBG Base Excess (-3.0-3.0) Lactate (0.20-2.00) mmol/L Sodium 141 (136-148) mmol/L Potassium 5.2 H (3.5-5.1) mmol/L Chloride 101 (98-107) mmol/L Carbon Dioxide 36.3 H (21.0-32.0) mmol/L BUN 41 H (7.0-18.0) mg/dL Creatinine 1.3 (0.8-1.3) mg/dL Est Cr Clr Drug Dosing 34.31 mL/min Estimated GFR (MDRD) 53.0 ml/min Glucose 102 (74-106) mg/dL Calcium 9.2 (8.5-10.1) mg/dL Total Bilirubin 0.7 (0.2-1.0) mg/dL AST 23 (15-37) IU/L ALT 22 (14-63) IU/L Alkaline Phosphatase 79 (46-116) U/L Troponin I 0.093 H* (0.000-0.056) ng/mL B-Natriuretic Peptide 51 (<100) PG/ML Total Protein 6.6 (6.4-8.2) g/dL Albumin 3.6 (3.4-5.0) g/dL Globulin 3.0 (2.6-4.0) g/dL Albumin/Globulin Ratio 1.2 (0.9-1.6) Lipase 117 (73-393) U/L Influenza Type A RNA (NEGATIVE) Influenza Type B RNA (NEGATIVE) SARS-CoV-2 RNA (JULIETA) (NEGATIVE) 06/05/20 06/05/20 06/05/20 Range/Units 18:04 19:50 19:59 WBC (4.0-11.0) K/uL RBC (4.50-5.90) M/uL Hgb (13.0-17.0) g/dL Hct (38.0-50.0) % MCV (80.0-98.0) fL MCH (27.0-32.0) pg MCHC (31.0-37.0) g/dL RDW Std Deviation (28.0-62.0) fl RDW Coeff of Yonis (11.0-15.0) % Plt Count (150-400) K/uL MPV (7.40-12.00) fL Neut % (Auto) (48.0-80.0) % Lymph % (Auto) (16.0-40.0) % [place] % (Auto) (0.0-15.0) % Eos % (Auto) (0.0-7.0) % Baso % (Auto) (0.0-1.5) % Neut # (Auto) (1.4-5.7) K/uL Lymph # (Auto) (0.6-2.4) K/uL [place] # (Auto) (0.0-0.8) K/uL Eos # (Auto) (0.0-0.7) K/uL Baso # (Auto) (0.0-0.1) K/uL Nucleated RBC % /100WBC Nucleated RBCs # K/uL D-Dimer, Quantitative (0.0-0.50) mg/L FEU ABG pH 7.267 L (7.35-7.45) ABG pCO2 68 H (35-45) mmHG ABG pO2 75 (75-100) mmHG ABG HCO3 31 H (22-26) mEq/L ABG Total CO2 28.9 ABG Base Excess 2.3 H (-2.0-2.0) VBG pH (7.31-7.41) VBG pCO2 (35-45) mmHG VBG pO2 (30-40) mmHG VBG HCO3 (22-30) mEq/L VBG Total CO2 (41-51) mmol/L VBG Base Excess (-3.0-3.0) Lactate (0.20-2.00) mmol/L Sodium (136-148) mmol/L Potassium (3.5-5.1) mmol/L Chloride (98-107) mmol/L Carbon Dioxide (21.0-32.0) mmol/L BUN (7.0-18.0) mg/dL Creatinine (0.8-1.3) mg/dL Est Cr Clr Drug Dosing mL/min Estimated GFR (MDRD) ml/min Glucose (74-106) mg/dL Calcium (8.5-10.1) mg/dL Total Bilirubin (0.2-1.0) mg/dL AST (15-37) IU/L ALT (14-63) IU/L Alkaline Phosphatase (46-116) U/L Troponin I 0.194 H* (0.000-0.056) ng/mL B-Natriuretic Peptide (<100) PG/ML Total Protein (6.4-8.2) g/dL Albumin (3.4-5.0) g/dL Globulin (2.6-4.0) g/dL Albumin/Globulin Ratio (0.9-1.6) Lipase (73-393) U/L Influenza Type A RNA NEGATIVE (NEGATIVE) Influenza Type B RNA NEGATIVE (NEGATIVE) SARS-CoV-2 RNA (JULIETA) NEGATIVE (NEGATIVE) Result Diagrams: 06/05/20 17:53 06/05/20 17:53 Xavier Results Last 24 hrs: Microbiology 06/05/20 17:57 Anaerobic Blood Culture - Final Blood - Venous - Lab Draw Sepsis Event Note - Evaluation Sepsis Screening Result: No Definite Risk - Focused Exam Vital Signs: Vital Signs Temp Pulse Resp BP Pulse Ox 06/05/20 20:43 37.5 C 99 24 H 137/57 L 94 L 06/05/20 19:58 87 27 H 152/56 H 97 06/05/20 19:33 91 28 H 138/63 96 06/05/20 17:58 87 19 147/52 H 100 06/05/20 17:39 87 24 H 153/54 H 100 06/05/20 17:18 36.4 C 86 24 H 145/52 H 100 - Problem List (1) Acute respiratory failure with hypercapnia SNOMED Code(s): 373489602 ICD Code: J96.02 - ACUTE RESPIRATORY FAILURE WITH HYPERCAPNIA Status: Acute Current Visit: Yes (2) Altered mental status SNOMED Code(s): 496938229 ICD Code: R41.82 - ALTERED MENTAL STATUS, UNSPECIFIED Status: Acute Current Visit: Yes Qualifiers: Altered mental status type: unspecified Qualified Code(s): R41.82 - Altered mental status, unspecified (3) COPD exacerbation SNOMED Code(s): 569525490 ICD Code: J44.1 - CHRONIC OBSTRUCTIVE PULMONARY DISEASE W (ACUTE) EXACERBATION Status: Acute Current Visit: Yes (4) Elevated troponin SNOMED Code(s): 778454254, 351119653, 963729977 ICD Code: R77.8 - OTHER SPECIFIED ABNORMALITIES OF PLASMA PROTEINS Status: Acute Current Visit: Yes (5) Olecranon fracture SNOMED Code(s): 885799756 ICD Code: S52.023A - DISP FX OF OLECRAN PRO W/O INTARTIC EXTN UNSP ULNA, INIT Status: Acute Current Visit: Yes Qualifiers: Encounter type: initial encounter Fracture type: closed Laterality: left Qualified Code(s): S52.022A - Displaced fracture of olecranon process without intraarticular extension of left ulna, initial encounter for closed fracture (6) Radial head fracture, closed SNOMED Code(s): 69502444 ICD Code: S52.123A - DISP FX OF HEAD OF UNSP RADIUS, INIT FOR CLOS FX Status: Acute Current Visit: Yes Qualifiers: Encounter type: initial encounter Fracture alignment: nondisplaced Laterality: left Qualified Code(s): S52.125A - Nondisplaced fracture of head of left radius, initial encounter for closed fracture Problem List Initiated/Reviewed/Updated: Yes Orders Last 24hrs: Active Orders 24 hr Category Date Time Status Admission Status [Patient Status] [ADT] Stat ADT 06/05/20 21:08 Active Ambulate [RC] ASDIRECTED Care 06/05/20 22:30 Ordered Antiembolic Devices [RC] PER UNIT ROUTINE Care 06/05/20 22:32 Ordered Cardiac Monitoring [RC] . DIRECTED Care 06/05/20 17:06 Active EKG Documentation Completion [RC] STAT Care 06/05/20 17:06 Active Insert Welch Catheter [Insert Urinary Catheter] [OM.PC] Care 06/05/20 22:45 Ordered Q24H Oxygen Therapy [RC] PRN Care 06/05/20 22:30 Ordered RT Aerosol Therapy [RC] ASDIRECTED Care 06/05/20 17:06 Active RT Aerosol Therapy [RC] ASDIRECTED Care 06/05/20 17:07 Active RT Aerosol Therapy [RC] ASDIRECTED Care 06/05/20 17:07 Active RT Aerosol Therapy [RC] ASDIRECTED Care 06/05/20 22:33 Ordered Urinary Catheter Assessment [RC] ASDIRECTED Care 06/05/20 22:39 Ordered VTE/DVT Education [RC] PER UNIT ROUTINE Care 06/05/20 22:30 Ordered Vital Signs [RC] Q4H Care 06/05/20 22:30 Ordered Clear Liquid Diet [DIET] Diet 06/06/20 Breakfast Ordered ABG [BLOOD GAS ARTERIAL] [BG] Routine Lab 06/06/20 07:00 Ordered BMP [BASIC METABOLIC PANEL,BMP] [CHEM] AM Lab 06/06/20 05:11 Ordered CBC WITH AUTO DIFF [HEME] AM Lab 06/06/20 05:11 Ordered CULTURE BLOOD [BC] Stat Lab 06/05/20 17:14 Received CULTURE BLOOD [BC] Stat Lab 06/05/20 17:57 Results MAGNESIUM [CHEM] AM Lab 06/06/20 05:11 Ordered PHOSPHORUS [CHEM] AM Lab 06/06/20 05:11 Ordered UA RFX XAVIER AND CULT IF INDIC [URIN] Stat Lab 06/05/20 17:06 Ordered Albuterol/Ipratropium [DuoNeb 3.0-0.5 MG/3 ML] Med 06/06/20 02:00 Ordered 3 ml NEB Q4HRRT Azithromycin [Zithromax] Med 06/06/20 09:00 Ordered 250 mg IV Q24H Azithromycin [Zithromax] 500 mg Med 06/05/20 20:00 Active Sodium Chloride 0.9% [Normal Saline (AdvBag)] 250 ml IV ONETIME Heparin Sodium Med 06/05/20 22:30 Ordered 5,000 units SUBCUT Q8H Lactated Ringers @ 125 MLS/HR(1000ml) Med 06/05/20 22:30 Ordered Lactated Ringers [Ringers, Lactated] 1,000 ml IV ASDIRECTED Lactated Ringers [Ringers, Lactated] 1,000 ml Med 06/05/20 22:30 Ordered IV BOLUS Morphine Med 06/05/20 22:30 Ordered 0.5 mg IVPUSH Q4H PRN Ondansetron [Zofran] Med 06/05/20 22:30 Ordered 4 mg IVPUSH Q4H PRN Pantoprazole [ProTONIX IV] 40 mg Med 06/05/20 22:45 Ordered Sodium Chloride 0.9% [Normal Saline] 10 ml IV DAILY Sodium Chloride 0.9% [Saline Flush] Med 06/05/20 17:06 Active 10 ml FLUSH ASDIRECTED PRN Sodium Chloride 0.9% [Saline Flush] Med 06/05/20 17:06 Active 2.5 ml FLUSH ASDIRECTED PRN methylPREDNISolone Sod Succ [Solu-MEDROL] Med 06/06/20 02:00 Ordered 40 mg IVPUSH Q8H BiPAP [RESPCARE] Stat Ot 06/05/20 18:49 Active Blood Culture x2 Reflex Set [OM.PC] Stat Ot 06/05/20 17:10 Ordered DME for Discharge [COMM] Stat Ot 06/05/20 22:05 Ordered Saline Lock Insert [OM.PC] Stat Ot 06/05/20 17:06 Ordered Sequential Compression Device [OM.PC] Per Unit Routine Ot 06/05/20 22:31 Ordered Resuscitation Status Routine Resus Stat 06/05/20 22:30 Ordered Medication Orders Albuterol/Ipratropium (Albuterol/Ipratropium 3.0-0.5 Mg/3 Ml Neb Soln) 3 ml NEB Q4HRRT [facility] Azithromycin (Azithromycin 500 Mg Vial) 250 mg IV Q24H [place] Heparin Sodium (Porcine) (Heparin Sodium 5,000 Units/Ml Vial) 5,000 units SUBCUT Q8H [facility] Azithromycin 500 mg/ Sodium (Chloride) 250 mls @ 250 mls/hr IV ONETIME [facility]AT Last Admin: 06/05/20 20:55 Dose: 250 mls/hr Documented by: [id number] Lactated Ringer's (Ringers, Lactated) 1,000 mls @ 999 mls/hr IV BOLUS ONE Stop: 06/05/20 23:30 Lactated Ringer's (Ringers, Lactated) 1,000 mls @ 125 mls/hr IV ASDIRECTED [facility] Pantoprazole Sodium 40 mg/ (Sodium Chloride) 10 mls @ 300 mls/hr IV DAILY [facility] Methylprednisolone Sodium Succinate (Methylprednisolone Sodium Succinate 40 Mg/1 Ml Sdv) 40 mg IVPUSH Q8H [place] Morphine Sulfate (Morphine 10 Mg/Ml Syringe) 0.5 mg IVPUSH Q4H PRN PRN Reason: Pain (severe 7-10) Stop: 06/06/20 22:31 Ondansetron HCl (Ondansetron 4 Mg/2 Ml Sdv) 4 mg IVPUSH Q4H PRN PRN Reason: Nausea/Vomiting Sodium Chloride (Sodium Chloride 0.9% 2.5 Ml Syringe) 2.5 ml FLUSH ASDIRECTED PRN PRN Reason: Keep Vein Open Last Admin: 06/05/20 17:59 Dose: 2.5 ml Documented by: [id number] Sodium Chloride (Sodium Chloride 0.9% 10 Ml Syringe) 10 ml FLUSH ASDIRECTED PRN PRN Reason: Keep Vein Open Last Admin: 06/05/20 17:59 Dose: 10 ml Documented by: [id number] Assessment/Plan Comment:: 80 y/o M admitted for Acute over chronic hypoxic and hypercapnic resp. failure Left radial head fracture s/p splint cont BiPAP for now, repeat ABG in AM cont oxygenation to keep pulse oxy >88 start IV steroids, DuoNebs cont IV azithromycin IV fluids for hydration, Insert welch Troponin elevated, wont trend as family wants no cardiac intervention received full dose Lovenox, cont Heparin 5000 q8h Morphine low dose for pain in left elbow Possible comfort care transition in AM depending on patients clinical course overnight
[2020-06-05] MEDS ORDERED: LORazepam 2 MG/ML SDV IVPUSH ONE (23:24)
[2020-06-05] MEDS ORDERED: Haloperidol Lactate 5 MG/ML SDV IM ONE (23:24)
[2020-06-05] MEDS: Heparin Sodium 5,000 Units/ML Vial SUBCUT SCH (23:49)
[2020-06-05] MEDS: Pantoprazole 40 MG in Sodium Chloride 0.9% 10 ML IV SCH (23:55)
[2020-06-06] MEDS: Lactated Ringers 1,000 ML IV SCH ×2 (01:02→09:33)
[2020-06-06] MEDS ORDERED: Haloperidol Lactate 5 MG/ML SDV IM PRN (01:15)
[2020-06-06] MEDS: methylPREDNISolone Sodium Succinate 40 MG/1 ML SDV IVPUSH SCH ×2 (02:30→09:33)
[2020-06-06] MEDS: Albuterol/Ipratropium 3.0-0.5 MG/3 ML Neb Soln NEB SCH ×2 (02:31→06:02)
[2020-06-06] MEDS: Heparin Sodium 5,000 Units/ML Vial SUBCUT SCH (06:34)
[2020-06-06 07:10] LABS: CARBON DIOXIDE,CO2 33.9 mmol/L (21.0-32.0); POTASSIUM,K 4.8 mmol/L (3.5-5.1)
[2020-06-06] MEDS ORDERED: Azithromycin 500 MG Vial IV SCH (09:00)
[2020-06-06] MEDS: Pantoprazole 40 MG in Sodium Chloride 0.9% 10 ML IV SCH (09:33)
[2020-06-06] MEDS ORDERED: Albuterol/Ipratropium 3.0-0.5 MG/3 ML Neb Soln NEB PRN (09:36)
[2020-06-06] MEDS ORDERED: Azithromycin 500 MG in Sodium Chloride 0.9% 250 ML IV SCH ×2 (09:45→21:00)
--- NOTE | 2020-06-06 11:20 | PCM.PN ---
- General Info Date of Service: 06/06/20 Admission Dx/Problem (Free Text): Admission Diagnosis/Problem Admission Diagnosis/Problem COPD, Severe chronic obstructive pulmonary disease Subjective Update: seen at bedside, some distress due to arm sling, wants to take it off, daughter at bedside, patient on NC, overnight was agitated had to use chemical restrain with haldol, not tolerating bipap otherwise, , - Review of Systems General: Reports: Weakness, Fatigue. Denies: Fever Pulmonary: Reports: Shortness of Breath. Denies: Cough Cardiovascular: Reports: Dyspnea on Exertion. Denies: Chest Pain Gastrointestinal: Denies: Abdominal Pain, Constipation, Decreased Appetite Genitourinary: Denies: Dysuria, Frequency, Burning Musculoskeletal: Reports: Arm Pain, Hand Pain. Denies: Neck Pain, Shoulder Pain Skin: Denies: Cyanosis, Jaundice, Mottled Neurological: Reports: Confusion. Denies: Seizure, Syncope - Patient Data Vitals - Most Recent: Last Vital Signs Temp 37.1 C 06/06/20 07:23 Pulse 71 06/06/20 07:23 Resp 24 H 06/06/20 07:23 BP 147/65 H 06/06/20 07:23 Pulse Ox 97 06/06/20 07:23 Weight - Most Recent: 55.338 kg I&O - Last 24 Hours: Intake & Output 06/05/20 06/06/20 06/06/20 22:59 06:59 14:59 Intake Total 1442 Output Total 200 Balance 1242 Lab Results Last 24 Hours: Laboratory Results - last 24 hr 06/05/20 06/05/20 06/05/20 Range/Units 17:15 17:15 17:53 WBC 8.00 (4.0-11.0) K/uL RBC 4.18 L (4.50-5.90) M/uL Hgb 12.9 L (13.0-17.0) g/dL Hct 43.0 (38.0-50.0) % MCV 102.9 H (80.0-98.0) fL MCH 30.9 (27.0-32.0) pg MCHC 30.0 L (31.0-37.0) g/dL RDW Std Deviation 54.2 (28.0-62.0) fl RDW Coeff of Yonis 15 (11.0-15.0) % Plt Count 121 L (150-400) K/uL MPV 12.30 H (7.40-12.00) fL Neut % (Auto) 84.0 H (48.0-80.0) % Lymph % (Auto) 8.1 L (16.0-40.0) % Garvin % (Auto) 7.3 (0.0-15.0) % Eos % (Auto) 0.3 (0.0-7.0) % Baso % (Auto) 0.3 (0.0-1.5) % Neut # (Auto) 6.7 H (1.4-5.7) K/uL Lymph # (Auto) 0.7 (0.6-2.4) K/uL Garvin # (Auto) 0.6 (0.0-0.8) K/uL Eos # (Auto) 0.0 (0.0-0.7) K/uL Baso # (Auto) 0.0 (0.0-0.1) K/uL Nucleated RBC % 0.0 /100WBC Nucleated RBCs # 0 K/uL D-Dimer, Quantitative (0.0-0.50) mg/L FEU ABG pH (7.35-7.45) ABG pCO2 (35-45) mmHG ABG pO2 (75-100) mmHG ABG HCO3 (22-26) mEq/L ABG Total CO2 ABG Base Excess (-2.0-2.0) VBG pH 7.33 (7.31-7.41) VBG pCO2 64 H (35-45) mmHG VBG pO2 42 H (30-40) mmHG VBG HCO3 34 H (22-30) mEq/L VBG Total CO2 31 L (41-51) mmol/L VBG Base Excess 5.7 H (-3.0-3.0) Lactate 1.5 (0.20-2.00) mmol/L Sodium (136-148) mmol/L Potassium (3.5-5.1) mmol/L Chloride (98-107) mmol/L Carbon Dioxide (21.0-32.0) mmol/L BUN (7.0-18.0) mg/dL Creatinine (0.8-1.3) mg/dL Est Cr Clr Drug Dosing mL/min Estimated GFR (MDRD) ml/min Glucose (74-106) mg/dL Calcium (8.5-10.1) mg/dL Phosphorus (2.6-4.7) mg/dL Magnesium (1.8-2.4) mg/dL Total Bilirubin (0.2-1.0) mg/dL AST (15-37) IU/L ALT (14-63) IU/L Alkaline Phosphatase (46-116) U/L Troponin I (0.000-0.056) ng/mL B-Natriuretic Peptide (<100) PG/ML Total Protein (6.4-8.2) g/dL Albumin (3.4-5.0) g/dL Globulin (2.6-4.0) g/dL Albumin/Globulin Ratio (0.9-1.6) Lipase (73-393) U/L Urine Color Urine Appearance Urine pH (5.0-8.0) Ur Specific [place] (1.001-1.035) Urine Protein (NEGATIVE) mg/dL Urine Glucose (UA) (NEGATIVE) mg/dL Urine Ketones (NEGATIVE) mg/dL Urine Occult Blood (NEGATIVE) Urine Nitrite (NEGATIVE) Urine Bilirubin (NEGATIVE) Urine Urobilinogen (<2.0) EU/dL Ur Leukocyte Esterase (NEGATIVE) Urine RBC (0-2/HPF) Urine WBC (0-5/HPF) Ur Epithelial Cells (NONE-FEW) Urine Bacteria (NEGATIVE) Urine Mucus (NONE-MOD) Influenza Type A RNA (NEGATIVE) Influenza Type B RNA (NEGATIVE) SARS-CoV-2 RNA (JULIETA) (NEGATIVE) 06/05/20 06/05/20 06/05/20 Range/Units 17:53 17:53 17:53 WBC (4.0-11.0) K/uL RBC (4.50-5.90) M/uL Hgb (13.0-17.0) g/dL Hct (38.0-50.0) % MCV (80.0-98.0) fL MCH (27.0-32.0) pg MCHC (31.0-37.0) g/dL RDW Std Deviation (28.0-62.0) fl RDW Coeff of Yonis (11.0-15.0) % Plt Count (150-400) K/uL MPV (7.40-12.00) fL Neut % (Auto) (48.0-80.0) % Lymph % (Auto) (16.0-40.0) % Garvin % (Auto) (0.0-15.0) % Eos % (Auto) (0.0-7.0) % Baso % (Auto) (0.0-1.5) % Neut # (Auto) (1.4-5.7) K/uL Lymph # (Auto) (0.6-2.4) K/uL Garvin # (Auto) (0.0-0.8) K/uL Eos # (Auto) (0.0-0.7) K/uL Baso # (Auto) (0.0-0.1) K/uL Nucleated RBC % /100WBC Nucleated RBCs # K/uL D-Dimer, Quantitative 0.49 (0.0-0.50) mg/L FEU ABG pH (7.35-7.45) ABG pCO2 (35-45) mmHG ABG pO2 (75-100) mmHG ABG HCO3 (22-26) mEq/L ABG Total CO2 ABG Base Excess (-2.0-2.0) VBG pH (7.31-7.41) VBG pCO2 (35-45) mmHG VBG pO2 (30-40) mmHG VBG HCO3 (22-30) mEq/L VBG Total CO2 (41-51) mmol/L VBG Base Excess (-3.0-3.0) Lactate (0.20-2.00) mmol/L Sodium 141 (136-148) mmol/L Potassium 5.2 H (3.5-5.1) mmol/L Chloride 101 (98-107) mmol/L Carbon Dioxide 36.3 H (21.0-32.0) mmol/L BUN 41 H (7.0-18.0) mg/dL Creatinine 1.3 (0.8-1.3) mg/dL Est Cr Clr Drug Dosing 34.31 mL/min Estimated GFR (MDRD) 53.0 ml/min Glucose 102 (74-106) mg/dL Calcium 9.2 (8.5-10.1) mg/dL Phosphorus (2.6-4.7) mg/dL Magnesium (1.8-2.4) mg/dL Total Bilirubin 0.7 (0.2-1.0) mg/dL AST 23 (15-37) IU/L ALT 22 (14-63) IU/L Alkaline Phosphatase 79 (46-116) U/L Troponin I 0.093 H* (0.000-0.056) ng/mL B-Natriuretic Peptide 51 (<100) PG/ML Total Protein 6.6 (6.4-8.2) g/dL Albumin 3.6 (3.4-5.0) g/dL Globulin 3.0 (2.6-4.0) g/dL Albumin/Globulin Ratio 1.2 (0.9-1.6) Lipase 117 (73-393) U/L Urine Color Urine Appearance Urine pH (5.0-8.0) Ur Specific [place] (1.001-1.035) Urine Protein (NEGATIVE) mg/dL Urine Glucose (UA) (NEGATIVE) mg/dL Urine Ketones (NEGATIVE) mg/dL Urine Occult Blood (NEGATIVE) Urine Nitrite (NEGATIVE) Urine Bilirubin (NEGATIVE) Urine Urobilinogen (<2.0) EU/dL Ur Leukocyte Esterase (NEGATIVE) Urine RBC (0-2/HPF) Urine WBC (0-5/HPF) Ur Epithelial Cells (NONE-FEW) Urine Bacteria (NEGATIVE) Urine Mucus (NONE-MOD) Influenza Type A RNA (NEGATIVE) Influenza Type B RNA (NEGATIVE) SARS-CoV-2 RNA (JULIETA) (NEGATIVE) 06/05/20 06/05/20 06/05/20 Range/Units 18:04 19:50 19:59 WBC (4.0-11.0) K/uL RBC (4.50-5.90) M/uL Hgb (13.0-17.0) g/dL Hct (38.0-50.0) % MCV (80.0-98.0) fL MCH (27.0-32.0) pg MCHC (31.0-37.0) g/dL RDW Std Deviation (28.0-62.0) fl RDW Coeff of Yonis (11.0-15.0) % Plt Count (150-400) K/uL MPV (7.40-12.00) fL Neut % (Auto) (48.0-80.0) % Lymph % (Auto) (16.0-40.0) % Garvin % (Auto) (0.0-15.0) % Eos % (Auto) (0.0-7.0) % Baso % (Auto) (0.0-1.5) % Neut # (Auto) (1.4-5.7) K/uL Lymph # (Auto) (0.6-2.4) K/uL Garvin # (Auto) (0.0-0.8) K/uL Eos # (Auto) (0.0-0.7) K/uL Baso # (Auto) (0.0-0.1) K/uL Nucleated RBC % /100WBC Nucleated RBCs # K/uL D-Dimer, Quantitative (0.0-0.50) mg/L FEU ABG pH 7.267 L (7.35-7.45) ABG pCO2 68 H (35-45) mmHG ABG pO2 75 (75-100) mmHG ABG HCO3 31 H (22-26) mEq/L ABG Total CO2 28.9 ABG Base Excess 2.3 H (-2.0-2.0) VBG pH (7.31-7.41) VBG pCO2 (35-45) mmHG VBG pO2 (30-40) mmHG VBG HCO3 (22-30) mEq/L VBG Total CO2 (41-51) mmol/L VBG Base Excess (-3.0-3.0) Lactate (0.20-2.00) mmol/L Sodium (136-148) mmol/L Potassium (3.5-5.1) mmol/L Chloride (98-107) mmol/L Carbon Dioxide (21.0-32.0) mmol/L BUN (7.0-18.0) mg/dL Creatinine (0.8-1.3) mg/dL Est Cr Clr Drug Dosing mL/min Estimated GFR (MDRD) ml/min Glucose (74-106) mg/dL Calcium (8.5-10.1) mg/dL Phosphorus (2.6-4.7) mg/dL Magnesium (1.8-2.4) mg/dL Total Bilirubin (0.2-1.0) mg/dL AST (15-37) IU/L ALT (14-63) IU/L Alkaline Phosphatase (46-116) U/L Troponin I 0.194 H* (0.000-0.056) ng/mL B-Natriuretic Peptide (<100) PG/ML Total Protein (6.4-8.2) g/dL Albumin (3.4-5.0) g/dL Globulin (2.6-4.0) g/dL Albumin/Globulin Ratio (0.9-1.6) Lipase (73-393) U/L Urine Color Urine Appearance Urine pH (5.0-8.0) Ur Specific [place] (1.001-1.035) Urine Protein (NEGATIVE) mg/dL Urine Glucose (UA) (NEGATIVE) mg/dL Urine Ketones (NEGATIVE) mg/dL Urine Occult Blood (NEGATIVE) Urine Nitrite (NEGATIVE) Urine Bilirubin (NEGATIVE) Urine Urobilinogen (<2.0) EU/dL Ur Leukocyte Esterase (NEGATIVE) Urine RBC (0-2/HPF) Urine WBC (0-5/HPF) Ur Epithelial Cells (NONE-FEW) Urine Bacteria (NEGATIVE) Urine Mucus (NONE-MOD) Influenza Type A RNA NEGATIVE (NEGATIVE) Influenza Type B RNA NEGATIVE (NEGATIVE) SARS-CoV-2 RNA (JULIETA) NEGATIVE (NEGATIVE) 06/05/20 06/06/20 06/06/20 Range/Units 23:20 05:55 05:55 WBC 3.94 L (4.0-11.0) K/uL RBC 3.83 L (4.50-5.90) M/uL Hgb 11.7 L (13.0-17.0) g/dL Hct 38.1 (38.0-50.0) % MCV 99.5 H (80.0-98.0) fL MCH 30.5 (27.0-32.0) pg MCHC 30.7 L (31.0-37.0) g/dL RDW Std Deviation 53.9 (28.0-62.0) fl RDW Coeff of Yonis 15 (11.0-15.0) % Plt Count 127 L (150-400) K/uL MPV 12.60 H (7.40-12.00) fL Neut % (Auto) 86.8 H (48.0-80.0) % Lymph % (Auto) 10.4 L (16.0-40.0) % Garvin % (Auto) 2.8 (0.0-15.0) % Eos % (Auto) 0.0 (0.0-7.0) % Baso % (Auto) 0.0 (0.0-1.5) % Neut # (Auto) 3.4 (1.4-5.7) K/uL Lymph # (Auto) 0.4 L (0.6-2.4) K/uL Garvin # (Auto) 0.1 (0.0-0.8) K/uL Eos # (Auto) 0.0 (0.0-0.7) K/uL Baso # (Auto) 0.0 (0.0-0.1) K/uL Nucleated RBC % 0.0 /100WBC Nucleated RBCs # 0 K/uL D-Dimer, Quantitative (0.0-0.50) mg/L FEU ABG pH (7.35-7.45) ABG pCO2 (35-45) mmHG ABG pO2 (75-100) mmHG ABG HCO3 (22-26) mEq/L ABG Total CO2 ABG Base Excess (-2.0-2.0) VBG pH (7.31-7.41) VBG pCO2 (35-45) mmHG VBG pO2 (30-40) mmHG VBG HCO3 (22-30) mEq/L VBG Total CO2 (41-51) mmol/L VBG Base Excess (-3.0-3.0) Lactate (0.20-2.00) mmol/L Sodium 141 (136-148) mmol/L Potassium 4.8 (3.5-5.1) mmol/L Chloride 103 (98-107) mmol/L Carbon Dioxide 33.9 H (21.0-32.0) mmol/L BUN 40 H (7.0-18.0) mg/dL Creatinine 1.2 (0.8-1.3) mg/dL Est Cr Clr Drug Dosing 37.79 mL/min Estimated GFR (MDRD) 58.1 ml/min Glucose 159 H (74-106) mg/dL Calcium 8.9 (8.5-10.1) mg/dL Phosphorus 4.0 (2.6-4.7) mg/dL Magnesium 2.1 (1.8-2.4) mg/dL Total Bilirubin (0.2-1.0) mg/dL AST (15-37) IU/L ALT (14-63) IU/L Alkaline Phosphatase (46-116) U/L Troponin I (0.000-0.056) ng/mL B-Natriuretic Peptide (<100) PG/ML Total Protein (6.4-8.2) g/dL Albumin (3.4-5.0) g/dL Globulin (2.6-4.0) g/dL Albumin/Globulin Ratio (0.9-1.6) Lipase (73-393) U/L Urine Color YELLOW Urine Appearance CLOUDY Urine pH 5.0 (5.0-8.0) Ur Specific [place] 1.020 (1.001-1.035) Urine Protein NEGATIVE (NEGATIVE) mg/dL Urine Glucose (UA) NEGATIVE (NEGATIVE) mg/dL Urine Ketones TRACE H (NEGATIVE) mg/dL Urine Occult Blood LARGE H (NEGATIVE) Urine Nitrite NEGATIVE (NEGATIVE) Urine Bilirubin NEGATIVE (NEGATIVE) Urine Urobilinogen 0.2 (<2.0) EU/dL Ur Leukocyte Esterase NEGATIVE (NEGATIVE) Urine RBC 30-40 (0-2/HPF) Urine WBC 2-4 (0-5/HPF) Ur Epithelial Cells FEW (NONE-FEW) Urine Bacteria FEW (NEGATIVE) Urine Mucus LIGHT (NONE-MOD) Influenza Type A RNA (NEGATIVE) Influenza Type B RNA (NEGATIVE) SARS-CoV-2 RNA (JULIETA) (NEGATIVE) 06/06/20 Range/Units 06:15 WBC (4.0-11.0) K/uL RBC (4.50-5.90) M/uL Hgb (13.0-17.0) g/dL Hct (38.0-50.0) % MCV (80.0-98.0) fL MCH (27.0-32.0) pg MCHC (31.0-37.0) g/dL RDW Std Deviation (28.0-62.0) fl RDW Coeff of Yonis (11.0-15.0) % Plt Count (150-400) K/uL MPV (7.40-12.00) fL Neut % (Auto) (48.0-80.0) % Lymph % (Auto) (16.0-40.0) % [place] % (Auto) (0.0-15.0) % Eos % (Auto) (0.0-7.0) % Baso % (Auto) (0.0-1.5) % Neut # (Auto) (1.4-5.7) K/uL Lymph # (Auto) (0.6-2.4) K/uL Garvin # (Auto) (0.0-0.8) K/uL Eos # (Auto) (0.0-0.7) K/uL Baso # (Auto) (0.0-0.1) K/uL Nucleated RBC % /100WBC Nucleated RBCs # K/uL D-Dimer, Quantitative (0.0-0.50) mg/L FEU ABG pH 7.528 H (7.35-7.45) ABG pCO2 40 (35-45) mmHG ABG pO2 35 L* (75-100) mmHG ABG HCO3 33 H (22-26) mEq/L ABG Total CO2 30.0 ABG Base Excess 9.6 H (-2.0-2.0) VBG pH (7.31-7.41) VBG pCO2 (35-45) mmHG VBG pO2 (30-40) mmHG VBG HCO3 (22-30) mEq/L VBG Total CO2 (41-51) mmol/L VBG Base Excess (-3.0-3.0) Lactate (0.20-2.00) mmol/L Sodium (136-148) mmol/L Potassium (3.5-5.1) mmol/L Chloride (98-107) mmol/L Carbon Dioxide (21.0-32.0) mmol/L BUN (7.0-18.0) mg/dL Creatinine (0.8-1.3) mg/dL Est Cr Clr Drug Dosing mL/min Estimated GFR (MDRD) ml/min Glucose (74-106) mg/dL Calcium (8.5-10.1) mg/dL Phosphorus (2.6-4.7) mg/dL Magnesium (1.8-2.4) mg/dL Total Bilirubin (0.2-1.0) mg/dL AST (15-37) IU/L ALT (14-63) IU/L Alkaline Phosphatase (46-116) U/L Troponin I (0.000-0.056) ng/mL B-Natriuretic Peptide (<100) PG/ML Total Protein (6.4-8.2) g/dL Albumin (3.4-5.0) g/dL Globulin (2.6-4.0) g/dL Albumin/Globulin Ratio (0.9-1.6) Lipase (73-393) U/L Urine Color Urine Appearance Urine pH (5.0-8.0) Ur Specific [place] (1.001-1.035) Urine Protein (NEGATIVE) mg/dL Urine Glucose (UA) (NEGATIVE) mg/dL Urine Ketones (NEGATIVE) mg/dL Urine Occult Blood (NEGATIVE) Urine Nitrite (NEGATIVE) Urine Bilirubin (NEGATIVE) Urine Urobilinogen (<2.0) EU/dL Ur Leukocyte Esterase (NEGATIVE) Urine RBC (0-2/HPF) Urine WBC (0-5/HPF) Ur Epithelial Cells (NONE-FEW) Urine Bacteria (NEGATIVE) Urine Mucus (NONE-MOD) Influenza Type A RNA (NEGATIVE) Influenza Type B RNA (NEGATIVE) SARS-CoV-2 RNA (JULIETA) (NEGATIVE) Xavier Results Last 24 Hours: Microbiology 06/05/20 17:57 Anaerobic Blood Culture - Final Blood - Venous - Lab Draw Med Orders - Current: Current Medications Albuterol/Ipratropium (Albuterol/Ipratropium 3.0-0.5 Mg/3 Ml Neb Soln) 3 ml NEB Q4HRRT PRN PRN Reason: Shortness of Breath Lactated Ringer's (Ringers, Lactated) 1,000 mls @ 125 mls/hr IV ASDIRECTED [facility] Last Admin: 06/06/20 09:33 Dose: 125 mls/hr Documented by: Lorazepam (Lorazepam 2 Mg/Ml Sdv) 1 mg IVPUSH Q4H PRN PRN Reason: agitation/anxiety Morphine Sulfate (Morphine 10 Mg/Ml Syringe) 0.5 mg IVPUSH Q4H PRN PRN Reason: Pain (severe 7-10) Stop: 06/06/20 22:31 Morphine Sulfate (Morphine 2 Mg/Ml Syringe) 2 mg IVPUSH Q1H PRN PRN Reason: pain/agitation/SOB Ondansetron HCl (Ondansetron 4 Mg/2 Ml Sdv) 4 mg IVPUSH Q4H PRN PRN Reason: Nausea/Vomiting Sodium Chloride (Sodium Chloride 0.9% 2.5 Ml Syringe) 2.5 ml FLUSH ASDIRECTED PRN PRN Reason: Keep Vein Open Last Admin: 06/05/20 17:59 Dose: 2.5 ml Documented by: Sodium Chloride (Sodium Chloride 0.9% 10 Ml Syringe) 10 ml FLUSH ASDIRECTED PRN PRN Reason: Keep Vein Open Last Admin: 06/05/20 17:59 Dose: 10 ml Documented by: Discontinued Medications Albuterol/Ipratropium (Albuterol/Ipratropium 3.0-0.5 Mg/3 Ml Neb Soln) 3 ml NEB ONETIME ONE Stop: 06/05/20 17:07 Last Admin: 06/05/20 17:16 Dose: 3 ml Documented by: Albuterol/Ipratropium (Albuterol/Ipratropium 3.0-0.5 Mg/3 Ml Neb Soln) 3 ml NEB ONETIME ONE Stop: 06/05/20 17:08 Last Admin: 06/05/20 17:16 Dose: 3 ml Documented by: Albuterol/Ipratropium (Albuterol/Ipratropium 3.0-0.5 Mg/3 Ml Neb Soln) 3 ml NEB ONETIME ONE Stop: 06/05/20 17:08 Last Admin: 06/05/20 17:16 Dose: 3 ml Documented by: Albuterol/Ipratropium (Albuterol/Ipratropium 3.0-0.5 Mg/3 Ml Neb Soln) 3 ml NEB Q4HRRT MONSERRAT Last Admin: 06/06/20 06:02 Dose: 3 ml Documented by: Aspirin (Aspirin 81 Mg Tab.Chew) 324 mg PO ONETIME ONE Stop: 06/05/20 18:44 Last Admin: 06/05/20 19:49 Dose: Not Given Documented by: Enoxaparin Sodium (Enoxaparin 60 Mg/0.6 Ml Syringe) 54 mg SUBCUT ONETIME ONE Stop: 06/05/20 21:08 Last Admin: 06/05/20 21:27 Dose: 54 mg Documented by: Haloperidol Lactate (Haloperidol Lactate 5 Mg/Ml Sdv) 5 mg IM ONETIME ONE Stop: 06/05/20 23:25 Last Admin: 06/05/20 23:47 Dose: 5 mg Documented by: Haloperidol Lactate (Haloperidol Lactate 5 Mg/Ml Sdv) 5 mg IM Q8H PRN PRN Reason: Agitation Heparin Sodium (Porcine) (Heparin Sodium 5,000 Units/Ml Vial) 5,000 units SUBCUT Q8H [facility] Last Admin: 06/06/20 06:34 Dose: 5,000 units Documented by: Sodium Chloride (Normal Saline) 1,000 mls @ 500 mls/hr IV STAT ONE Stop: 06/05/20 19:42 Last Admin: 06/05/20 17:58 Dose: 500 mls/hr Documented by: Ceftriaxone Sodium/Dextrose 1 (gm/ Premix) 50 mls @ 100 mls/hr IV ONETIME ONE Stop: 06/05/20 20:27 Last Admin: 06/05/20 20:09 Dose: 100 mls/hr Documented by: Azithromycin 500 mg/ Sodium (Chloride) 250 mls @ 250 mls/hr IV ONETIME [facility] Last Admin: 06/05/20 20:55 Dose: 250 mls/hr Documented by: Lactated Ringer's (Ringers, Lactated) 1,000 mls @ 999 mls/hr IV BOLUS ONE Stop: 06/05/20 23:30 Last Admin: 06/05/20 23:51 Dose: 999 mls/hr Documented by: Pantoprazole Sodium 40 mg/ (Sodium Chloride) 10 mls @ 300 mls/hr IV DAILY [facility] Last Admin: 06/06/20 09:33 Dose: 300 mls/hr Documented by: Azithromycin 500 mg/ Sodium (Chloride) 250 mls @ 250 mls/hr IV Q24H [facility] Azithromycin 500 mg/ Sodium (Chloride) 250 mls @ 250 mls/hr IV Q24H [facility] Iopamidol (Iopamidol 755 Mg/Ml 100 Ml Bottle) 100 ml IVPUSH ONETIME STA Stop: 06/05/20 18:54 Last Admin: 06/05/20 19:34 Dose: 100 ml Documented by: Lorazepam (Lorazepam 2 Mg/Ml Sdv) 0.5 mg IVPUSH ONETIME ONE Stop: 06/05/20 23:25 Last Admin: 06/05/20 23:38 Dose: 0.5 mg Documented by: Methylprednisolone Sodium Succinate (Methylprednisolone Sodium Succinate 125 Mg/2 Ml Sdv) 125 mg IVPUSH ONETIME ONE Stop: 06/05/20 17:07 Last Admin: 06/05/20 17:58 Dose: 125 mg Documented by: Methylprednisolone Sodium Succinate (Methylprednisolone Sodium Succinate 40 Mg/1 Ml Sdv) 40 mg IVPUSH Q8H MONSERRAT Last Admin: 06/06/20 09:33 Dose: 40 mg Documented by: - Exam Quality Assessment: Supplemental Oxygen General: Alert, Mild Distress Neck: Supple Lungs: Normal Respiratory Effort, Decreased Breath Sounds Cardiovascular: Regular Rate, Regular Rhythm GI/Abdominal Exam: Normal Bowel Sounds, Soft, Non-Tender Extremities: Arm Pain, Limited Range of Motion - Patient Data Lab Results Last 24 hrs: Laboratory Results - last 24 hr 06/05/20 06/05/20 06/05/20 Range/Units 17:15 17:15 17:53 WBC 8.00 (4.0-11.0) K/uL RBC 4.18 L (4.50-5.90) M/uL Hgb 12.9 L (13.0-17.0) g/dL Hct 43.0 (38.0-50.0) % MCV 102.9 H (80.0-98.0) fL MCH 30.9 (27.0-32.0) pg MCHC 30.0 L (31.0-37.0) g/dL RDW Std Deviation 54.2 (28.0-62.0) fl RDW Coeff of Yonis 15 (11.0-15.0) % Plt Count 121 L (150-400) K/uL MPV 12.30 H (7.40-12.00) fL Neut % (Auto) 84.0 H (48.0-80.0) % Lymph % (Auto) 8.1 L (16.0-40.0) % [place] % (Auto) 7.3 (0.0-15.0) % Eos % (Auto) 0.3 (0.0-7.0) % Baso % (Auto) 0.3 (0.0-1.5) % Neut # (Auto) 6.7 H (1.4-5.7) K/uL Lymph # (Auto) 0.7 (0.6-2.4) K/uL Garvin # (Auto) 0.6 (0.0-0.8) K/uL Eos # (Auto) 0.0 (0.0-0.7) K/uL Baso # (Auto) 0.0 (0.0-0.1) K/uL Nucleated RBC % 0.0 /100WBC Nucleated RBCs # 0 K/uL D-Dimer, Quantitative (0.0-0.50) mg/L FEU ABG pH (7.35-7.45) ABG pCO2 (35-45) mmHG ABG pO2 (75-100) mmHG ABG HCO3 (22-26) mEq/L ABG Total CO2 ABG Base Excess (-2.0-2.0) VBG pH 7.33 (7.31-7.41) VBG pCO2 64 H (35-45) mmHG VBG pO2 42 H (30-40) mmHG VBG HCO3 34 H (22-30) mEq/L VBG Total CO2 31 L (41-51) mmol/L VBG Base Excess 5.7 H (-3.0-3.0) Lactate 1.5 (0.20-2.00) mmol/L Sodium (136-148) mmol/L Potassium (3.5-5.1) mmol/L Chloride (98-107) mmol/L Carbon Dioxide (21.0-32.0) mmol/L BUN (7.0-18.0) mg/dL Creatinine (0.8-1.3) mg/dL Est Cr Clr Drug Dosing mL/min Estimated GFR (MDRD) ml/min Glucose (74-106) mg/dL Calcium (8.5-10.1) mg/dL Phosphorus (2.6-4.7) mg/dL Magnesium (1.8-2.4) mg/dL Total Bilirubin (0.2-1.0) mg/dL AST (15-37) IU/L ALT (14-63) IU/L Alkaline Phosphatase (46-116) U/L Troponin I (0.000-0.056) ng/mL B-Natriuretic Peptide (<100) PG/ML Total Protein (6.4-8.2) g/dL Albumin (3.4-5.0) g/dL Globulin (2.6-4.0) g/dL Albumin/Globulin Ratio (0.9-1.6) Lipase (73-393) U/L Urine Color Urine Appearance Urine pH (5.0-8.0) Ur Specific [place] (1.001-1.035) Urine Protein (NEGATIVE) mg/dL Urine Glucose (UA) (NEGATIVE) mg/dL Urine Ketones (NEGATIVE) mg/dL Urine Occult Blood (NEGATIVE) Urine Nitrite (NEGATIVE) Urine Bilirubin (NEGATIVE) Urine Urobilinogen (<2.0) EU/dL Ur Leukocyte Esterase (NEGATIVE) Urine RBC (0-2/HPF) Urine WBC (0-5/HPF) Ur Epithelial Cells (NONE-FEW) Urine Bacteria (NEGATIVE) Urine Mucus (NONE-MOD) Influenza Type A RNA (NEGATIVE) Influenza Type B RNA (NEGATIVE) SARS-CoV-2 RNA (JULIETA) (NEGATIVE) 06/05/20 06/05/20 06/05/20 Range/Units 17:53 17:53 17:53 WBC (4.0-11.0) K/uL RBC (4.50-5.90) M/uL Hgb (13.0-17.0) g/dL Hct (38.0-50.0) % MCV (80.0-98.0) fL MCH (27.0-32.0) pg MCHC (31.0-37.0) g/dL RDW Std Deviation (28.0-62.0) fl RDW Coeff of Yonis (11.0-15.0) % Plt Count (150-400) K/uL MPV (7.40-12.00) fL Neut % (Auto) (48.0-80.0) % Lymph % (Auto) (16.0-40.0) % [place]vin % (Auto) (0.0-15.0) % Eos % (Auto) (0.0-7.0) % Baso % (Auto) (0.0-1.5) % Neut # (Auto) (1.4-5.7) K/uL Lymph # (Auto) (0.6-2.4) K/uL Garvin # (Auto) (0.0-0.8) K/uL Eos # (Auto) (0.0-0.7) K/uL Baso # (Auto) (0.0-0.1) K/uL Nucleated RBC % /100WBC Nucleated RBCs # K/uL D-Dimer, Quantitative 0.49 (0.0-0.50) mg/L FEU ABG pH (7.35-7.45) ABG pCO2 (35-45) mmHG ABG pO2 (75-100) mmHG ABG HCO3 (22-26) mEq/L ABG Total CO2 ABG Base Excess (-2.0-2.0) VBG pH (7.31-7.41) VBG pCO2 (35-45) mmHG VBG pO2 (30-40) mmHG VBG HCO3 (22-30) mEq/L VBG Total CO2 (41-51) mmol/L VBG Base Excess (-3.0-3.0) Lactate (0.20-2.00) mmol/L Sodium 141 (136-148) mmol/L Potassium 5.2 H (3.5-5.1) mmol/L Chloride 101 (98-107) mmol/L Carbon Dioxide 36.3 H (21.0-32.0) mmol/L BUN 41 H (7.0-18.0) mg/dL Creatinine 1.3 (0.8-1.3) mg/dL Est Cr Clr Drug Dosing 34.31 mL/min Estimated GFR (MDRD) 53.0 ml/min Glucose 102 (74-106) mg/dL Calcium 9.2 (8.5-10.1) mg/dL Phosphorus (2.6-4.7) mg/dL Magnesium (1.8-2.4) mg/dL Total Bilirubin 0.7 (0.2-1.0) mg/dL AST 23 (15-37) IU/L ALT 22 (14-63) IU/L Alkaline Phosphatase 79 (46-116) U/L Troponin I 0.093 H* (0.000-0.056) ng/mL B-Natriuretic Peptide 51 (<100) PG/ML Total Protein 6.6 (6.4-8.2) g/dL Albumin 3.6 (3.4-5.0) g/dL Globulin 3.0 (2.6-4.0) g/dL Albumin/Globulin Ratio 1.2 (0.9-1.6) Lipase 117 (73-393) U/L Urine Color Urine Appearance Urine pH (5.0-8.0) Ur Specific [place] (1.001-1.035) Urine Protein (NEGATIVE) mg/dL Urine Glucose (UA) (NEGATIVE) mg/dL Urine Ketones (NEGATIVE) mg/dL Urine Occult Blood (NEGATIVE) Urine Nitrite (NEGATIVE) Urine Bilirubin (NEGATIVE) Urine Urobilinogen (<2.0) EU/dL Ur Leukocyte Esterase (NEGATIVE) Urine RBC (0-2/HPF) Urine WBC (0-5/HPF) Ur Epithelial Cells (NONE-FEW) Urine Bacteria (NEGATIVE) Urine Mucus (NONE-MOD) Influenza Type A RNA (NEGATIVE) Influenza Type B RNA (NEGATIVE) SARS-CoV-2 RNA (JULIETA) (NEGATIVE) 06/05/20 06/05/20 06/05/20 Range/Units 18:04 19:50 19:59 WBC (4.0-11.0) K/uL RBC (4.50-5.90) M/uL Hgb (13.0-17.0) g/dL Hct (38.0-50.0) % MCV (80.0-98.0) fL MCH (27.0-32.0) pg MCHC (31.0-37.0) g/dL RDW Std Deviation (28.0-62.0) fl RDW Coeff of Yonis (11.0-15.0) % Plt Count (150-400) K/uL MPV (7.40-12.00) fL Neut % (Auto) (48.0-80.0) % Lymph % (Auto) (16.0-40.0) % [place]vin % (Auto) (0.0-15.0) % Eos % (Auto) (0.0-7.0) % Baso % (Auto) (0.0-1.5) % Neut # (Auto) (1.4-5.7) K/uL Lymph # (Auto) (0.6-2.4) K/uL [place]vin # (Auto) (0.0-0.8) K/uL Eos # (Auto) (0.0-0.7) K/uL Baso # (Auto) (0.0-0.1) K/uL Nucleated RBC % /100WBC Nucleated RBCs # K/uL D-Dimer, Quantitative (0.0-0.50) mg/L FEU ABG pH 7.267 L (7.35-7.45) ABG pCO2 68 H (35-45) mmHG ABG pO2 75 (75-100) mmHG ABG HCO3 31 H (22-26) mEq/L ABG Total CO2 28.9 ABG Base Excess 2.3 H (-2.0-2.0) VBG pH (7.31-7.41) VBG pCO2 (35-45) mmHG VBG pO2 (30-40) mmHG VBG HCO3 (22-30) mEq/L VBG Total CO2 (41-51) mmol/L VBG Base Excess (-3.0-3.0) Lactate (0.20-2.00) mmol/L Sodium (136-148) mmol/L Potassium (3.5-5.1) mmol/L Chloride (98-107) mmol/L Carbon Dioxide (21.0-32.0) mmol/L BUN (7.0-18.0) mg/dL Creatinine (0.8-1.3) mg/dL Est Cr Clr Drug Dosing mL/min Estimated GFR (MDRD) ml/min Glucose (74-106) mg/dL Calcium (8.5-10.1) mg/dL Phosphorus (2.6-4.7) mg/dL Magnesium (1.8-2.4) mg/dL Total Bilirubin (0.2-1.0) mg/dL AST (15-37) IU/L ALT (14-63) IU/L Alkaline Phosphatase (46-116) U/L Troponin I 0.194 H* (0.000-0.056) ng/mL B-Natriuretic Peptide (<100) PG/ML Total Protein (6.4-8.2) g/dL Albumin (3.4-5.0) g/dL Globulin (2.6-4.0) g/dL Albumin/Globulin Ratio (0.9-1.6) Lipase (73-393) U/L Urine Color Urine Appearance Urine pH (5.0-8.0) Ur Specific [place] (1.001-1.035) Urine Protein (NEGATIVE) mg/dL Urine Glucose (UA) (NEGATIVE) mg/dL Urine Ketones (NEGATIVE) mg/dL Urine Occult Blood (NEGATIVE) Urine Nitrite (NEGATIVE) Urine Bilirubin (NEGATIVE) Urine Urobilinogen (<2.0) EU/dL Ur Leukocyte Esterase (NEGATIVE) Urine RBC (0-2/HPF) Urine WBC (0-5/HPF) Ur Epithelial Cells (NONE-FEW) Urine Bacteria (NEGATIVE) Urine Mucus (NONE-MOD) Influenza Type A RNA NEGATIVE (NEGATIVE) Influenza Type B RNA NEGATIVE (NEGATIVE) SARS-CoV-2 RNA (JULIETA) NEGATIVE (NEGATIVE) 06/05/20 06/06/20 06/06/20 Range/Units 23:20 05:55 05:55 WBC 3.94 L (4.0-11.0) K/uL RBC 3.83 L (4.50-5.90) M/uL Hgb 11.7 L (13.0-17.0) g/dL Hct 38.1 (38.0-50.0) % MCV 99.5 H (80.0-98.0) fL MCH 30.5 (27.0-32.0) pg MCHC 30.7 L (31.0-37.0) g/dL RDW Std Deviation 53.9 (28.0-62.0) fl RDW Coeff of Yonis 15 (11.0-15.0) % Plt Count 127 L (150-400) K/uL MPV 12.60 H (7.40-12.00) fL Neut % (Auto) 86.8 H (48.0-80.0) % Lymph % (Auto) 10.4 L (16.0-40.0) % Garvin % (Auto) 2.8 (0.0-15.0) % Eos % (Auto) 0.0 (0.0-7.0) % Baso % (Auto) 0.0 (0.0-1.5) % Neut # (Auto) 3.4 (1.4-5.7) K/uL Lymph # (Auto) 0.4 L (0.6-2.4) K/uL Garvin # (Auto) 0.1 (0.0-0.8) K/uL Eos # (Auto) 0.0 (0.0-0.7) K/uL Baso # (Auto) 0.0 (0.0-0.1) K/uL Nucleated RBC % 0.0 /100WBC Nucleated RBCs # 0 K/uL D-Dimer, Quantitative (0.0-0.50) mg/L FEU ABG pH (7.35-7.45) ABG pCO2 (35-45) mmHG ABG pO2 (75-100) mmHG ABG HCO3 (22-26) mEq/L ABG Total CO2 ABG Base Excess (-2.0-2.0) VBG pH (7.31-7.41) VBG pCO2 (35-45) mmHG VBG pO2 (30-40) mmHG VBG HCO3 (22-30) mEq/L VBG Total CO2 (41-51) mmol/L VBG Base Excess (-3.0-3.0) Lactate (0.20-2.00) mmol/L Sodium 141 (136-148) mmol/L Potassium 4.8 (3.5-5.1) mmol/L Chloride 103 (98-107) mmol/L Carbon Dioxide 33.9 H (21.0-32.0) mmol/L BUN 40 H (7.0-18.0) mg/dL Creatinine 1.2 (0.8-1.3) mg/dL Est Cr Clr Drug Dosing 37.79 mL/min Estimated GFR (MDRD) 58.1 ml/min Glucose 159 H (74-106) mg/dL Calcium 8.9 (8.5-10.1) mg/dL Phosphorus 4.0 (2.6-4.7) mg/dL Magnesium 2.1 (1.8-2.4) mg/dL Total Bilirubin (0.2-1.0) mg/dL AST (15-37) IU/L ALT (14-63) IU/L Alkaline Phosphatase (46-116) U/L Troponin I (0.000-0.056) ng/mL B-Natriuretic Peptide (<100) PG/ML Total Protein (6.4-8.2) g/dL Albumin (3.4-5.0) g/dL Globulin (2.6-4.0) g/dL Albumin/Globulin Ratio (0.9-1.6) Lipase (73-393) U/L Urine Color YELLOW Urine Appearance CLOUDY Urine pH 5.0 (5.0-8.0) Ur Specific [place] 1.020 (1.001-1.035) Urine Protein NEGATIVE (NEGATIVE) mg/dL Urine Glucose (UA) NEGATIVE (NEGATIVE) mg/dL Urine Ketones TRACE H (NEGATIVE) mg/dL Urine Occult Blood LARGE H (NEGATIVE) Urine Nitrite NEGATIVE (NEGATIVE) Urine Bilirubin NEGATIVE (NEGATIVE) Urine Urobilinogen 0.2 (<2.0) EU/dL Ur Leukocyte Esterase NEGATIVE (NEGATIVE) Urine RBC 30-40 (0-2/HPF) Urine WBC 2-4 (0-5/HPF) Ur Epithelial Cells FEW (NONE-FEW) Urine Bacteria FEW (NEGATIVE) Urine Mucus LIGHT (NONE-MOD) Influenza Type A RNA (NEGATIVE) Influenza Type B RNA (NEGATIVE) SARS-CoV-2 RNA (JULIETA) (NEGATIVE) 06/06/20 Range/Units 06:15 WBC (4.0-11.0) K/uL RBC (4.50-5.90) M/uL Hgb (13.0-17.0) g/dL Hct (38.0-50.0) % MCV (80.0-98.0) fL MCH (27.0-32.0) pg MCHC (31.0-37.0) g/dL RDW Std Deviation (28.0-62.0) fl RDW Coeff of Yonis (11.0-15.0) % Plt Count (150-400) K/uL MPV (7.40-12.00) fL Neut % (Auto) (48.0-80.0) % Lymph % (Auto) (16.0-40.0) % Garvin % (Auto) (0.0-15.0) % Eos % (Auto) (0.0-7.0) % Baso % (Auto) (0.0-1.5) % Neut # (Auto) (1.4-5.7) K/uL Lymph # (Auto) (0.6-2.4) K/uL Garvin # (Auto) (0.0-0.8) K/uL Eos # (Auto) (0.0-0.7) K/uL Baso # (Auto) (0.0-0.1) K/uL Nucleated RBC % /100WBC Nucleated RBCs # K/uL D-Dimer, Quantitative (0.0-0.50) mg/L FEU ABG pH 7.528 H (7.35-7.45) ABG pCO2 40 (35-45) mmHG ABG pO2 35 L* (75-100) mmHG ABG HCO3 33 H (22-26) mEq/L ABG Total CO2 30.0 ABG Base Excess 9.6 H (-2.0-2.0) VBG pH (7.31-7.41) VBG pCO2 (35-45) mmHG VBG pO2 (30-40) mmHG VBG HCO3 (22-30) mEq/L VBG Total CO2 (41-51) mmol/L VBG Base Excess (-3.0-3.0) Lactate (0.20-2.00) mmol/L Sodium (136-148) mmol/L Potassium (3.5-5.1) mmol/L Chloride (98-107) mmol/L Carbon Dioxide (21.0-32.0) mmol/L BUN (7.0-18.0) mg/dL Creatinine (0.8-1.3) mg/dL Est Cr Clr Drug Dosing mL/min Estimated GFR (MDRD) ml/min Glucose (74-106) mg/dL Calcium (8.5-10.1) mg/dL Phosphorus (2.6-4.7) mg/dL Magnesium (1.8-2.4) mg/dL Total Bilirubin (0.2-1.0) mg/dL AST (15-37) IU/L ALT (14-63) IU/L Alkaline Phosphatase (46-116) U/L Troponin I (0.000-0.056) ng/mL B-Natriuretic Peptide (<100) PG/ML Total Protein (6.4-8.2) g/dL Albumin (3.4-5.0) g/dL Globulin (2.6-4.0) g/dL Albumin/Globulin Ratio (0.9-1.6) Lipase (73-393) U/L Urine Color Urine Appearance Urine pH (5.0-8.0) Ur Specific [place] (1.001-1.035) Urine Protein (NEGATIVE) mg/dL Urine Glucose (UA) (NEGATIVE) mg/dL Urine Ketones (NEGATIVE) mg/dL Urine Occult Blood (NEGATIVE) Urine Nitrite (NEGATIVE) Urine Bilirubin (NEGATIVE) Urine Urobilinogen (<2.0) EU/dL Ur Leukocyte Esterase (NEGATIVE) Urine RBC (0-2/HPF) Urine WBC (0-5/HPF) Ur Epithelial Cells (NONE-FEW) Urine Bacteria (NEGATIVE) Urine Mucus (NONE-MOD) Influenza Type A RNA (NEGATIVE) Influenza Type B RNA (NEGATIVE) SARS-CoV-2 RNA (JULIETA) (NEGATIVE) Result Diagrams: 06/06/20 05:55 06/06/20 05:55 Xavier Results Last 24 hrs: Microbiology 06/05/20 17:57 Anaerobic Blood Culture - Final Blood - Venous - Lab Draw Sepsis Event Note - Evaluation Sepsis Screening Result: No Definite Risk - Focused Exam Vital Signs: Vital Signs Temp Pulse Resp BP Pulse Ox 06/06/20 07:23 37.1 C 71 24 H 147/65 H 97 06/06/20 03:43 36.6 C 75 17 130/62 95 06/05/20 23:22 36.6 C 85 24 H 126/50 L 100 - Problem List & Annotations (1) Acute respiratory failure with hypercapnia SNOMED Code(s): 649526833 Code(s): J96.02 - ACUTE RESPIRATORY FAILURE WITH HYPERCAPNIA Status: Acute Current Visit: Yes (2) Altered mental status SNOMED Code(s): 475683303 Code(s): R41.82 - ALTERED MENTAL STATUS, UNSPECIFIED Status: Acute Current Visit: Yes Qualifiers: Altered mental status type: unspecified Qualified Code(s): R41.82 - Altered mental status, unspecified (3) COPD exacerbation SNOMED Code(s): 670710605 Code(s): J44.1 - CHRONIC OBSTRUCTIVE PULMONARY DISEASE W (ACUTE) EXACERBATION Status: Acute Current Visit: Yes (4) Elevated troponin SNOMED Code(s): 376471230, 449912161, 767950113 Code(s): R77.8 - OTHER SPECIFIED ABNORMALITIES OF PLASMA PROTEINS Status: Acute Current Visit: Yes (5) Olecranon fracture SNOMED Code(s): 514654031 Code(s): S52.023A - DISP FX OF OLECRAN PRO W/O INTARTIC EXTN UNSP ULNA, INIT Status: Acute Current Visit: Yes Qualifiers: Encounter type: initial encounter Fracture type: closed Laterality: left Qualified Code(s): S52.022A - Displaced fracture of olecranon process without intraarticular extension of left ulna, initial encounter for closed fracture (6) Radial head fracture, closed SNOMED Code(s): 96911018 Code(s): S52.123A - DISP FX OF HEAD OF UNSP RADIUS, INIT FOR CLOS FX Status: Acute Current Visit: Yes Qualifiers: Encounter type: initial encounter Fracture alignment: nondisplaced Laterality: left Qualified Code(s): S52.125A - Nondisplaced fracture of head of left radius, initial encounter for closed fracture - Problem List Review Problem List Initiated/Reviewed/Updated: Yes - My Orders Last 24 Hours: My Active Orders 06/05/20 21:48 Telemetry Monitoring [Cardiac Monitoring] [RC] . DIRECTED 06/05/20 22:30 Ambulate [RC] ASDIRECTED Oxygen Therapy [RC] PRN VTE/DVT Education [RC] PER UNIT ROUTINE Vital Signs [RC] Q12H Lactated Ringers [Ringers, Lactated] 1,000 ml IV ASDIRECTED Morphine 0.5 mg IVPUSH Q4H PRN Ondansetron [Zofran] 4 mg IVPUSH Q4H PRN 06/05/20 22:31 Sequential Compression Device [OM.PC] Per Unit Routine 06/05/20 22:32 Antiembolic Devices [RC] PER UNIT ROUTINE 06/05/20 22:33 RT Aerosol Therapy [RC] ASDIRECTED 06/05/20 22:39 Urinary Catheter Assessment [RC] ASDIRECTED 06/05/20 22:45 Insert Puliod Catheter [Insert Urinary Catheter] [OM.PC] Q24H - Plan Plan:: 80 y/o M admitted for Acute over chronic hypoxic and hypercapnic resp. failure Daughter at bedside wants patient to be transitioned to comfort care given that he is in pain due to his fracture and also isnt tolerating BIPAP without sedation, given patients end stage COPD , possible NSTEMI patient qualifies for hospice/comfort care/palliative measures for end of life care will start comfort care measures with morphine and Ativan as needed Will get SW on board for possible transfer to [place] for hospice care if patient does survive over the weekend Hospice consult
[2020-06-06] MEDS: Morphine 2 MG/ML SYRINGE IVPUSH PRN ×3 (13:54→18:27)
[2020-06-06] MEDS: LORazepam 2 MG/ML SDV IVPUSH PRN ×2 (13:54→18:27)
[2020-06-06] MEDS ORDERED: LORazepam Conc Solution 2 MG/ML 30 ML Bottle PO PRN (21:17)
[2020-06-06] MEDS: Morphine 10 MG/0.5 ML Oral Syringe SL PRN (22:13)
[2020-06-06] MEDS ORDERED: LORazepam Conc Solution 2 MG/ML 30 ML Bottle PO ONE (23:58)
[2020-06-07] MEDS: Morphine 10 MG/0.5 ML Oral Syringe SL PRN ×10 (00:23→18:51)
[2020-06-07] MEDS: LORazepam Conc Solution 2 MG/ML 30 ML Bottle PO PRN ×9 (03:31→18:51)
[2020-06-07 04:23] VITALS: PULSE 72
[2020-06-07 08:31] VITALS: BP 148/68
--- NOTE | 2020-06-07 13:27 | PCM.PN ---
- General Info Date of Service: 06/07/20 Admission Dx/Problem (Free Text): Admission Diagnosis/Problem Admission Diagnosis/Problem COPD, Severe chronic obstructive pulmonary disease Subjective Update: seen at bedside, somnolent, family at bedside, no distress Functional Status: Reports: Pain Controlled, Urinating. Denies: Tolerating Diet, Ambulating - Review of Systems Systems Review Comment:: unable to obtain , patient is somnolent due to clinical condition, - Patient Data Vitals - Most Recent: Last Vital Signs Temp 36.6 C 06/07/20 08:31 Pulse 72 06/07/20 08:31 Resp 22 H 06/07/20 08:31 BP 148/68 H 06/07/20 08:31 Pulse Ox 82 L 06/07/20 08:31 Weight - Most Recent: 55.338 kg I&O - Last 24 Hours: Intake & Output 06/06/20 06/07/20 06/07/20 22:59 06:59 14:59 Intake Total 2460 50 Output Total 500 0 Balance 1960 50 Xavier Results Last 24 Hours: Microbiology 06/05/20 17:57 Aerobic Blood Culture - Preliminary Blood - Venous - Lab Draw NO GROWTH AFTER 1 DAY Anaerobic Blood Culture - Final 06/05/20 17:14 Aerobic Blood Culture - Preliminary Blood - Venous NO GROWTH AFTER 1 DAY Anaerobic Blood Culture - Preliminary NO GROWTH AFTER 1 DAY Med Orders - Current: Current Medications Albuterol/Ipratropium (Albuterol/Ipratropium 3.0-0.5 Mg/3 Ml Neb Soln) 3 ml NEB Q4HRRT PRN PRN Reason: Shortness of Breath Last Admin: 06/06/20 22:25 Dose: 3 ml Documented by: Lorazepam (Lorazepam Conc Solution 2 Mg/Ml 30 Ml Bottle) 1 mg PO Q30M PRN PRN Reason: Agitation Last Admin: 06/07/20 12:22 Dose: 1 mg Documented by: Morphine Sulfate (Morphine 10 Mg/0.5 Ml Oral Syringe) 2 mg SL Q30M PRN PRN Reason: Pain Last Admin: 06/07/20 12:22 Dose: 2 mg Documented by: Ondansetron HCl (Ondansetron 4 Mg/2 Ml Sdv) 4 mg IVPUSH Q4H PRN PRN Reason: Nausea/Vomiting Sodium Chloride (Sodium Chloride 0.9% 2.5 Ml Syringe) 2.5 ml FLUSH ASDIRECTED PRN PRN Reason: Keep Vein Open Last Admin: 06/05/20 17:59 Dose: 2.5 ml Documented by: Sodium Chloride (Sodium Chloride 0.9% 10 Ml Syringe) 10 ml FLUSH ASDIRECTED PRN PRN Reason: Keep Vein Open Last Admin: 06/05/20 17:59 Dose: 10 ml Documented by: Discontinued Medications Albuterol/Ipratropium (Albuterol/Ipratropium 3.0-0.5 Mg/3 Ml Neb Soln) 3 ml NEB ONETIME ONE Stop: 06/05/20 17:07 Last Admin: 06/05/20 17:16 Dose: 3 ml Documented by: Albuterol/Ipratropium (Albuterol/Ipratropium 3.0-0.5 Mg/3 Ml Neb Soln) 3 ml NEB ONETIME ONE Stop: 06/05/20 17:08 Last Admin: 06/05/20 17:16 Dose: 3 ml Documented by: Albuterol/Ipratropium (Albuterol/Ipratropium 3.0-0.5 Mg/3 Ml Neb Soln) 3 ml NEB ONETIME ONE Stop: 06/05/20 17:08 Last Admin: 06/05/20 17:16 Dose: 3 ml Documented by: Albuterol/Ipratropium (Albuterol/Ipratropium 3.0-0.5 Mg/3 Ml Neb Soln) 3 ml NEB Q4HRRT [facility] Last Admin: 06/06/20 06:02 Dose: 3 ml Documented by: Aspirin (Aspirin 81 Mg Tab.Chew) 324 mg PO ONETIME ONE Stop: 06/05/20 18:44 Last Admin: 06/05/20 19:49 Dose: Not Given Documented by: Enoxaparin Sodium (Enoxaparin 60 Mg/0.6 Ml Syringe) 54 mg SUBCUT ONETIME ONE Stop: 06/05/20 21:08 Last Admin: 06/05/20 21:27 Dose: 54 mg Documented by: Haloperidol Lactate (Haloperidol Lactate 5 Mg/Ml Sdv) 5 mg IM ONETIME ONE Stop: 06/05/20 23:25 Last Admin: 06/05/20 23:47 Dose: 5 mg Documented by: Haloperidol Lactate (Haloperidol Lactate 5 Mg/Ml Sdv) 5 mg IM Q8H PRN PRN Reason: Agitation Heparin Sodium (Porcine) (Heparin Sodium 5,000 Units/Ml Vial) 5,000 units SUBCUT Q8H [facility] Last Admin: 06/06/20 06:34 Dose: 5,000 units Documented by: Sodium Chloride (Normal Saline) 1,000 mls @ 500 mls/hr IV STAT ONE Stop: 06/05/20 19:42 Last Admin: 06/05/20 17:58 Dose: 500 mls/hr Documented by: Ceftriaxone Sodium/Dextrose 1 (gm/ Premix) 50 mls @ 100 mls/hr IV ONETIME ONE Stop: 06/05/20 20:27 Last Admin: 06/05/20 20:09 Dose: 100 mls/hr Documented by: Azithromycin 500 mg/ Sodium (Chloride) 250 mls @ 250 mls/hr IV ONETIME [place] Last Admin: 06/05/20 20:55 Dose: 250 mls/hr Documented by: Lactated Ringer's (Ringers, Lactated) 1,000 mls @ 999 mls/hr IV BOLUS ONE Stop: 06/05/20 23:30 Last Admin: 06/05/20 23:51 Dose: 999 mls/hr Documented by: Lactated Ringer's (Ringers, Lactated) 1,000 mls @ 125 mls/hr IV ASDIRECTED [facility] Last Admin: 06/06/20 09:33 Dose: 125 mls/hr Documented by: Pantoprazole Sodium 40 mg/ (Sodium Chloride) 10 mls @ 300 mls/hr IV DAILY [facility] Last Admin: 06/06/20 09:33 Dose: 300 mls/hr Documented by: Azithromycin 500 mg/ Sodium (Chloride) 250 mls @ 250 mls/hr IV Q24H [place] Azithromycin 500 mg/ Sodium (Chloride) 250 mls @ 250 mls/hr IV Q24H [place] Iopamidol (Iopamidol 755 Mg/Ml 100 Ml Bottle) 100 ml IVPUSH ONETIME STA Stop: 06/05/20 18:54 Last Admin: 06/05/20 19:34 Dose: 100 ml Documented by: Lorazepam (Lorazepam 2 Mg/Ml Sdv) 0.5 mg IVPUSH ONETIME ONE Stop: 06/05/20 23:25 Last Admin: 06/05/20 23:38 Dose: 0.5 mg Documented by: Lorazepam (Lorazepam 2 Mg/Ml Sdv) 1 mg IVPUSH Q4H PRN PRN Reason: agitation/anxiety Last Admin: 06/06/20 18:27 Dose: 1 mg Documented by: Lorazepam (Lorazepam Conc Solution 2 Mg/Ml 30 Ml Bottle) 1 mg PO Q1H PRN PRN Reason: Agitation Last Admin: 06/06/20 22:18 Dose: 1 mg Documented by: Lorazepam (Lorazepam Conc Solution 2 Mg/Ml 30 Ml Bottle) 2 mg PO ONETIME ONE Stop: 06/06/20 23:59 Last Admin: 06/07/20 00:15 Dose: 2 mg Documented by: Methylprednisolone Sodium Succinate (Methylprednisolone Sodium Succinate 125 Mg/2 Ml Sdv) 125 mg IVPUSH ONETIME ONE Stop: 06/05/20 17:07 Last Admin: 06/05/20 17:58 Dose: 125 mg Documented by: Methylprednisolone Sodium Succinate (Methylprednisolone Sodium Succinate 40 Mg/1 Ml Sdv) 40 mg IVPUSH Q8H [place] Last Admin: 06/06/20 09:33 Dose: 40 mg Documented by: Morphine Sulfate (Morphine 10 Mg/Ml Syringe) 0.5 mg IVPUSH Q4H PRN PRN Reason: Pain (severe 7-10) Stop: 06/06/20 22:31 Morphine Sulfate (Morphine 2 Mg/Ml Syringe) 2 mg IVPUSH Q1H PRN PRN Reason: pain/agitation/SOB Last Admin: 06/06/20 18:27 Dose: 2 mg Documented by: Morphine Sulfate (Morphine 10 Mg/0.5 Ml Oral Syringe) 2 mg SL Q1H PRN PRN Reason: Pain Last Admin: 06/07/20 00:23 Dose: 2 mg Documented by: - Exam Quality Assessment: Supplemental Oxygen General: Sedated Lungs: Clear to Auscultation, Decreased Breath Sounds Cardiovascular: Regular Rate, Regular Rhythm GI/Abdominal Exam: Soft, Non-Tender Extremities: Mottled, Pallor - Patient Data Result Diagrams: 06/06/20 05:55 06/06/20 05:55 Xavier Results Last 24 hrs: Microbiology 06/05/20 17:57 Aerobic Blood Culture - Preliminary Blood - Venous - Lab Draw NO GROWTH AFTER 1 DAY Anaerobic Blood Culture - Final 06/05/20 17:14 Aerobic Blood Culture - Preliminary Blood - Venous NO GROWTH AFTER 1 DAY Anaerobic Blood Culture - Preliminary NO GROWTH AFTER 1 DAY Sepsis Event Note - Evaluation Sepsis Screening Result: No Definite Risk - Focused Exam Vital Signs: Vital Signs Temp Pulse Resp BP Pulse Ox 06/07/20 08:31 36.6 C 72 22 H 148/68 H 82 L 06/07/20 04:00 72 89 L - Problem List & Annotations (1) Acute respiratory failure with hypercapnia SNOMED Code(s): 300036747 Code(s): J96.02 - ACUTE RESPIRATORY FAILURE WITH HYPERCAPNIA Status: Acute Current Visit: Yes (2) Altered mental status SNOMED Code(s): 853749731 Code(s): R41.82 - ALTERED MENTAL STATUS, UNSPECIFIED Status: Acute Current Visit: Yes Qualifiers: Altered mental status type: unspecified Qualified Code(s): R41.82 - Altered mental status, unspecified (3) COPD exacerbation SNOMED Code(s): 108081723 Code(s): J44.1 - CHRONIC OBSTRUCTIVE PULMONARY DISEASE W (ACUTE) EXACERBATION Status: Acute Current Visit: Yes (4) Elevated troponin SNOMED Code(s): 726520639, 955266331, 325700509 Code(s): R77.8 - OTHER SPECIFIED ABNORMALITIES OF PLASMA PROTEINS Status: Acute Current Visit: Yes (5) Olecranon fracture SNOMED Code(s): 914471617 Code(s): S52.023A - DISP FX OF OLECRAN PRO W/O INTARTIC EXTN UNSP ULNA, INIT Status: Acute Current Visit: Yes Qualifiers: Encounter type: initial encounter Fracture type: closed Laterality: left Qualified Code(s): S52.022A - Displaced fracture of olecranon process without intraarticular extension of left ulna, initial encounter for closed fracture (6) Radial head fracture, closed SNOMED Code(s): 75024001 Code(s): S52.123A - DISP FX OF HEAD OF UNSP RADIUS, INIT FOR CLOS FX Status: Acute Current Visit: Yes Qualifiers: Encounter type: initial encounter Fracture alignment: nondisplaced Laterality: left Qualified Code(s): S52.125A - Nondisplaced fracture of head of left radius, initial encounter for closed fracture - Problem List Review Problem List Initiated/Reviewed/Updated: Yes - My Orders Last 24 Hours: My Active Orders 06/07/20 00:49 LORazepam [Ativan] 1 mg PO Q30M PRN 06/07/20 00:50 Morphine [Morphine 10 MG/0.5 ML Oral Syringe] 2 mg SL Q30M PRN - Plan Plan:: 80 y/o M admitted for Acute over chronic hypoxic and hypercapnic resp. failure cont hospice/comfort care/palliative measures for end of life care with morphine and Ativan as needed Will get SW on board for possible transfer to [place] for hospice care if patient does survive over the weekend Hospice consult
--- NOTE | 2020-06-07 20:44 | PCM.DCSUM1 ---
Discharge Summary - Hospital Course Free Text/Narrative:: Patient is an 80-year-old male with PMH of end stage COPD on 5 lts of oxygen who presents emergency room today via EMS with concern of hypoxia and altered mental status. Per family Patient lives at home and that patient's daughter comes to check on him daily. Per family patient uses 4-5 lts of oxygen but isnt very compliant with it. Per daughter patient was a little more confused last night but today, he had completely urinated all over himself, was trying to crawl out the window and did not know where he was at, and he had not been using his oxygen all day. Daughter states that his confusion has gotten worse last few weeks and they were considering [facility] for placement but patient didnt want to go. Daugther also states that 1 week ago he did fall and injured his left elbow and did hit his head at that time. Patient/daughter denies fever, chills, chest pain. Denies headache, neck stiff ness, change in vision, syncope, or near syncope. Denies nausea, vomiting, abdominal pain, diarrhea, constipation, or dysuria. Has not noted any blood in urine or stool. In the ER patient was to have Ph of 7.2, co2 of 68, he was started on BiPAP due to increased WOB. Troponins were elevated as well, trending up, EKG was showed no acute ischemic changes. Xray of left elbow shoed non displaces # of radial head and avulsion fracture of olecranon process. Patients daughter who is the POA states patient wanted to be DNR/DNI and transfer to tertiary facility was discussed which family refused stating they wouldn't want aggressive care. Patient is on BiPAP at bedside, asking for water, awake, alert but not oriented. Patient was admitted for further care. I had a lengthy discussion with daughter (POA) at bedside, she wants to try BiPAP overnight and possibly transition to comfort care in the morning. They doesnt want any sort of aggressive care but are ok with BiPAP as long as patient tolerated, if he doesn't tolerate it, will switch to oxygen and lean to comfort care, daughter in agreement. Overnight patient was agitated and wasnt tolerating BiPAP, in the morning decision was made by the family to transition to Hospice/Pallative care. Patient was started on Morphine for pain control, Ativan for agitation. Eventually patient peacefully in his sleep surrounded by his family at bedside. - Discharge Data Discharge Date: 06/07/20 Discharge Disposition: 20 Condition: - Referral to Home Health Primary Care Physician: PCP None - Discharge Diagnosis/Problem(s) (1) Acute respiratory failure with hypercapnia SNOMED Code(s): 364616671 ICD Code: J96.02 - ACUTE RESPIRATORY FAILURE WITH HYPERCAPNIA (2) Altered mental status SNOMED Code(s): 730250529 ICD Code: R41.82 - ALTERED MENTAL STATUS, UNSPECIFIED Status: Acute Qualifiers: Altered mental status type: unspecified Qualified Code(s): R41.82 - Altered mental status, unspecified (3) COPD exacerbation SNOMED Code(s): 324492114 ICD Code: J44.1 - CHRONIC OBSTRUCTIVE PULMONARY DISEASE W (ACUTE) EXACERBATION Status: Acute (4) Elevated troponin SNOMED Code(s): 114225149, 414602301, 619908976 ICD Code: R77.8 - OTHER SPECIFIED ABNORMALITIES OF PLASMA PROTEINS Status: Acute (5) Olecranon fracture SNOMED Code(s): 556397012 ICD Code: S52.023A - DISP FX OF OLECRAN PRO W/O INTARTIC EXTN UNSP ULNA, INIT Status: Acute Qualifiers: Encounter type: initial encounter Fracture type: closed Laterality: left Qualified Code(s): S52.022A - Displaced fracture of olecranon process without intraarticular extension of left ulna, initial encounter for closed fracture (6) Radial head fracture, closed SNOMED Code(s): 01233223 ICD Code: S52.123A - DISP FX OF HEAD OF UNSP RADIUS, INIT FOR CLOS FX Status: Acute Qualifiers: Encounter type: initial encounter Fracture alignment: nondisplaced Laterality: left Qualified Code(s): S52.125A - Nondisplaced fracture of head of left radius, initial encounter for closed fracture - Patient Summary/Data Consults: Consultations 06/06/20 09:56 Consult to Hospice [CONS] Routine - Discharge Plan Home Medications: Home Meds . [Unable to Verify Home Med List] 06/05/20 [History] Referrals: Gio Toure MD [Ordering Only Provider] - 06/18/20 9:00 am - Discharge Summary/Plan Comment DC Time >30 min.: No - Patient Data Vitals - Most Recent: Last Vital Signs Temp 36.6 C 06/07/20 08:31 Pulse 72 06/07/20 08:31 Resp 22 H 06/07/20 08:31 BP 148/68 H 06/07/20 08:31 Pulse Ox 82 L 06/07/20 08:31 Weight - Most Recent: 55.338 kg I&O - Last 24 hours: Intake & Output 06/07/20 06/07/20 06/07/20 06:59 14:59 22:59 Intake Total 50 20 Output Total 0 Balance 50 20 MITALI Results - Last 24 hrs: Microbiology 06/05/20 17:57 Aerobic Blood Culture - Preliminary Blood - Venous - Lab Draw NO GROWTH AFTER 2 DAYS Anaerobic Blood Culture - Final 06/05/20 17:14 Aerobic Blood Culture - Preliminary Blood - Venous NO GROWTH AFTER 2 DAYS Anaerobic Blood Culture - Preliminary NO GROWTH AFTER 2 DAYS Med Orders - Current: Current Medications Albuterol/Ipratropium (Albuterol/Ipratropium 3.0-0.5 Mg/3 Ml Neb Soln) 3 ml NEB Q4HRRT PRN PRN Reason: Shortness of Breath Last Admin: 06/06/20 22:25 Dose: 3 ml Documented by: Lorazepam (Lorazepam Conc Solution 2 Mg/Ml 30 Ml Bottle) 1 mg PO Q30M PRN PRN Reason: Agitation Last Admin: 06/07/20 18:51 Dose: 1 mg Documented by: Morphine Sulfate (Morphine 10 Mg/0.5 Ml Oral Syringe) 2 mg SL Q30M PRN PRN Reason: Pain Last Admin: 06/07/20 18:51 Dose: 2 mg Documented by: Ondansetron HCl (Ondansetron 4 Mg/2 Ml Sdv) 4 mg IVPUSH Q4H PRN PRN Reason: Nausea/Vomiting Sodium Chloride (Sodium Chloride 0.9% 2.5 Ml Syringe) 2.5 ml FLUSH ASDIRECTED PRN PRN Reason: Keep Vein Open Last Admin: 06/05/20 17:59 Dose: 2.5 ml Documented by: Sodium Chloride (Sodium Chloride 0.9% 10 Ml Syringe) 10 ml FLUSH ASDIRECTED PRN PRN Reason: Keep Vein Open Last Admin: 06/05/20 17:59 Dose: 10 ml Documented by: Discontinued Medications Albuterol/Ipratropium (Albuterol/Ipratropium 3.0-0.5 Mg/3 Ml Neb Soln) 3 ml NEB ONETIME ONE Stop: 06/05/20 17:07 Last Admin: 06/05/20 17:16 Dose: 3 ml Documented by: Albuterol/Ipratropium (Albuterol/Ipratropium 3.0-0.5 Mg/3 Ml Neb Soln) 3 ml NEB ONETIME ONE Stop: 06/05/20 17:08 Last Admin: 06/05/20 17:16 Dose: 3 ml Documented by: Albuterol/Ipratropium (Albuterol/Ipratropium 3.0-0.5 Mg/3 Ml Neb Soln) 3 ml NEB ONETIME ONE Stop: 06/05/20 17:08 Last Admin: 06/05/20 17:16 Dose: 3 ml Documented by: Albuterol/Ipratropium (Albuterol/Ipratropium 3.0-0.5 Mg/3 Ml Neb Soln) 3 ml NEB Q4HRRT [facility] Last Admin: 06/06/20 06:02 Dose: 3 ml Documented by: Aspirin (Aspirin 81 Mg Tab.Chew) 324 mg PO ONETIME ONE Stop: 06/05/20 18:44 Last Admin: 06/05/20 19:49 Dose: Not Given Documented by: Enoxaparin Sodium (Enoxaparin 60 Mg/0.6 Ml Syringe) 54 mg SUBCUT ONETIME ONE Stop: 06/05/20 21:08 Last Admin: 06/05/20 21:27 Dose: 54 mg Documented by: Haloperidol Lactate (Haloperidol Lactate 5 Mg/Ml Sdv) 5 mg IM ONETIME ONE Stop: 06/05/20 23:25 Last Admin: 06/05/20 23:47 Dose: 5 mg Documented by: Haloperidol Lactate (Haloperidol Lactate 5 Mg/Ml Sdv) 5 mg IM Q8H PRN PRN Reason: Agitation Heparin Sodium (Porcine) (Heparin Sodium 5,000 Units/Ml Vial) 5,000 units SUBCUT Q8H [facility] Last Admin: 06/06/20 06:34 Dose: 5,000 units Documented by: Sodium Chloride (Normal Saline) 1,000 mls @ 500 mls/hr IV STAT ONE Stop: 06/05/20 19:42 Last Admin: 06/05/20 17:58 Dose: 500 mls/hr Documented by: Ceftriaxone Sodium/Dextrose 1 (gm/ Premix) 50 mls @ 100 mls/hr IV ONETIME ONE Stop: 06/05/20 20:27 Last Admin: 06/05/20 20:09 Dose: 100 mls/hr Documented by: Azithromycin 500 mg/ Sodium (Chloride) 250 mls @ 250 mls/hr IV ONETIME [facility] Last Admin: 06/05/20 20:55 Dose: 250 mls/hr Documented by: Lactated Ringer's (Ringers, Lactated) 1,000 mls @ 999 mls/hr IV BOLUS ONE Stop: 06/05/20 23:30 Last Admin: 06/05/20 23:51 Dose: 999 mls/hr Documented by: Lactated Ringer's (Ringers, Lactated) 1,000 mls @ 125 mls/hr IV ASDIRECTED [facility] Last Admin: 06/06/20 09:33 Dose: 125 mls/hr Documented by: Pantoprazole Sodium 40 mg/ (Sodium Chloride) 10 mls @ 300 mls/hr IV DAILY [facility] Last Admin: 06/06/20 09:33 Dose: 300 mls/hr Documented by: Azithromycin 500 mg/ Sodium (Chloride) 250 mls @ 250 mls/hr IV Q24H [facility] Azithromycin 500 mg/ Sodium (Chloride) 250 mls @ 250 mls/hr IV Q24H [facility] Iopamidol (Iopamidol 755 Mg/Ml 100 Ml Bottle) 100 ml IVPUSH ONETIME STA Stop: 06/05/20 18:54 Last Admin: 06/05/20 19:34 Dose: 100 ml Documented by: Lorazepam (Lorazepam 2 Mg/Ml Sdv) 0.5 mg IVPUSH ONETIME ONE Stop: 06/05/20 23:25 Last Admin: 06/05/20 23:38 Dose: 0.5 mg Documented by: Lorazepam (Lorazepam 2 Mg/Ml Sdv) 1 mg IVPUSH Q4H PRN PRN Reason: agitation/anxiety Last Admin: 06/06/20 18:27 Dose: 1 mg Documented by: Lorazepam (Lorazepam Conc Solution 2 Mg/Ml 30 Ml Bottle) 1 mg PO Q1H PRN PRN Reason: Agitation Last Admin: 06/06/20 22:18 Dose: 1 mg Documented by: Lorazepam (Lorazepam Conc Solution 2 Mg/Ml 30 Ml Bottle) 2 mg PO ONETIME ONE Stop: 06/06/20 23:59 Last Admin: 06/07/20 00:15 Dose: 2 mg Documented by: Methylprednisolone Sodium Succinate (Methylprednisolone Sodium Succinate 125 Mg/2 Ml Sdv) 125 mg IVPUSH ONETIME ONE Stop: 06/05/20 17:07 Last Admin: 06/05/20 17:58 Dose: 125 mg Documented by: Methylprednisolone Sodium Succinate (Methylprednisolone Sodium Succinate 40 Mg/1 Ml Sdv) 40 mg IVPUSH Q8H [facility] Last Admin: 06/06/20 09:33 Dose: 40 mg Documented by: Morphine Sulfate (Morphine 10 Mg/Ml Syringe) 0.5 mg IVPUSH Q4H PRN PRN Reason: Pain (severe 7-10) Stop: 06/06/20 22:31 Morphine Sulfate (Morphine 2 Mg/Ml Syringe) 2 mg IVPUSH Q1H PRN PRN Reason: pain/agitation/SOB Last Admin: 06/06/20 18:27 Dose: 2 mg Documented by: Morphine Sulfate (Morphine 10 Mg/0.5 Ml Oral Syringe) 2 mg SL Q1H PRN PRN Reason: Pain Last Admin: 06/07/20 00:23 Dose: 2 mg Documented by:
== END 2020-06-07 20:50 | disposition expired | DRG 189 ==
LOC: MW.ED 17:03 → UNDOADMOB 21:08 → OBSVTOIN 21:08 → MW.MS 21:08
PROVIDERS: ADMIT Student in an Organized Health Care Education/Training Program; ATTEND Student in an Organized Health Care Education/Training Program
PROC: 5A09357 Assistance with Respiratory Ventilation, Less than 24 Consecutive Hours, Continuous Positive Airway Pressure (ICD-10-PCS; principal; 2020-06-05)
DX: J96.21 Acute and chronic respiratory failure with hypoxia (principal); J96.22 Acute and chronic respiratory failure with hypercapnia; Z51.5 Encounter for palliative care; J43.9 Emphysema, unspecified; J44.1 Chronic obstructive pulmonary disease with (acute) exacerbation; R77.8 Other specified abnormalities of plasma proteins; J96.02 Acute respiratory failure with hypercapnia; J96.01 Acute respiratory failure with hypoxia; R45.1 Restlessness and agitation; W22.8XXA Striking against or struck by other objects, initial encounter; S52.125A Nondisplaced fracture of head of left radius, initial encounter for closed fracture; S52.022A Displaced fracture of olecranon process without intraarticular extension of left ulna, initial encounter for closed fracture; Z99.81 Dependence on supplemental oxygen; Z90.79 Acquired absence of other genital organ(s); Z91.19 Patient's noncompliance with other medical treatment and regimen; R41.82 Altered mental status, unspecified; Z66 Do not resuscitate; Z20.822 Contact with and (suspected) exposure to COVID-19
CPT/HCPCS: 0240U; 36415; 36600; 70450; 71045; 71275; 72170; 73080; 80048; 80053; 81001; 82803; 83605; 83690; 83735; 83880; 84100; 84484; 85025; 85379; 87040; 93005; 94640; 94660; 93010; 99291; A9270-GY; C9113; J0456; J0696; J1630; J1644; J1650; J2060; J2270; J2920; J2930; J7030; J7050; J7120; J7620-GY; Q9967